=== PATIENT | male | born 1960 | race Caucasian/White ===

== ENCOUNTER 2023-10-29 15:00 | Inpatient (IN) | payer OTHER, SELFPAY ==
[2023-10-29] VITALS (8 sets, daily range): BP systolic 132–166; BP diastolic 64–85; BMI 30.8
--- NOTE | 2023-10-29 10:33 | ED.GENMED ---
History of Present Illness
<Kadi Colon PA-C - Last Filed: 10/29/23 14:43>
General
Chief Complaint: Post Operative Problem(s)
Source: patient
Exam Limitations: none
Time Seen by Provider: 10/29/23 10:31
Nursing documentation reviewed up to this point in time: agreed with
Travel History
Have you had any contact with someone who has COVID-19?: No
Do you have any symptoms of coronavirus? Fever > 100 degrees, chills, cough, shortness of breath, sore throat, loss of taste or smell, muscle aches, or headache?: No
History of Present Illness
History of Present Illness:
This is a 63-year-old male past medical history of insulin-dependent diabetes, hypertension, hyperlipidemia presenting to emergency department today with swelling, warmth, bleeding, general rate. Patient states that he was here at the hospital
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 He had to have a repeat surgery on August 07 and at that time drains were put in. He was released from the hospital August 3th and returned to work September
. Dr. Kaba and Dr. Linn performed his surgeries. He states that around a week ago, he started having swelling in the area. He states that the swelling increased over the past week and he called Dr. Linn who started him on levofloxacin.
He is on day 4 of levofloxacin. He denies fevers or chills. He states that today, he started to have warmth in the area which traveled down his leg, as well as bleeding. He states that he bled through his pants and underwear. He has no pain at
this time.
Past History
<Kadi Colon PA-C - Last Filed: 10/29/23 14:43>
Past History
ED Past Medical History: Other (Diabetes hypertension)
ED Past Surgical History: Other (Foreign gangrene)
Social History
Tobacco: Non-smoker
Alcohol: None
Drug: None
Personal:
Living: with family
Employment: Employed
Family History
Family History: Other (Noncontributory)
Review of Systems
<Kadi Colon PA-C - Last Filed: 10/29/23 14:43>
Review of Systems
All Other Systems: ROS reviewed and negative except as documented in HPI and ROS
Phy Exam
<Kadi Colon PA-C - Last Filed: 10/29/23 14:43>
Physical Exam
Physical Exam:
General: Patient is well-appearing in no acute distress
Cardiac: Regular rate and rhythm, no murmur
Pulm: Normal respiratory effort
Abodmen: Abdomen is nondistended, nonrigid, nontender to palpation
Genitourinary: See attending note
Course
<Kadi Colon PA-C - Last Filed: 10/29/23 14:43>
Orders/Labs/Results
Orders:
Orders
10/29/23 10:53
Complete Blood Count/With Diff Urgent
Comprehensive Metabolic Panel Urgent
10/29/23 11:31
CT Abd/pelvis W Iv Cont Urgent
Comment:
Reason For Exam: suprapubic fullness, drainage--h/o neli's
10/29/23 11:32
0.9% Sodium Chloride 1000 ml [Nss] 1,000 ml IV BOLUS
10/29/23 13:43
Piperacillin/Tazo 3.375 Gram [Zosyn] 3.375 gram in 50 ml IV NOW
10/29/23 13:45
INFECTIOUS DISEASE CONSULT Urgent
Consulting Provider: Javier Yeh
Was physician already notified: Yes
UROLOGY CONSULT Urgent
Consulting Provider: Kevon Yost
Was physician already notified: Yes
10/29/23 13:53
Lactate Level [Lactic Acid] Urgent
Blood Culture Q30M
NARCISO Source: Blood/Venous
Specimen Description:
10/29/23 13:54
Wound Culture [Wound/Abscess/Other Culture] Urgent
NARCISO Source: Groin
Specimen Description: Left
Date Specimen was Collected: 10/29/23
Time Specimen was Collected: 13:54
10/29/23 14:15
Blood Culture Q30M
NARCISO Source: Blood/Venous
Specimen Description:
Abnormal Lab Results
10/29/23
10:53
WBC 14.4 H 10^3/uL
(4.8-10.8)
RBC 3.53 L 10^6/uL
(4.70-6.10)
Hgb 10.8 L g/dL
(13.0-18.0)
Hct 31.6 L %
(39.0-52.0)
Abs Immat Gran (auto) 0.1 H 10^3/uL
(0-0.05)
Absolute Neuts (auto) 11.8 H 10^3/uL
(1.4-6.5)
Absolute Lymphs (auto) 1.1 L 10^3/uL
(1.2-3.4)
Absolute Monos (auto) 1.4 H 10^3/uL
(0.1-0.6)
Neutrophils % 81.8 H %
(42.2-75.2)
Lymphocytes % 7.7 L %
(20.5-51.1)
Monocytes % 9.4 H %
(1.7-9.3)
BUN 61 H mg/dl
(9-20)
Creatinine 2.2 H mg/dL
(0.7-1.3)
Glucose 121 H mg/dl
(70-99)
10/29/23 10:53
10/29/23 10:53
Vital Signs
Initial and Last Documented VS:
Initial Vital Signs
Temp Pulse Resp BP Pulse Ox
98.2 F 85 20 138/85 100
10/29/23 10:23 10/29/23 10:23 10/29/23 10:23 10/29/23 10:23 10/29/23 10:23
Last Documented Vital Signs
Temp Pulse Resp BP Pulse Ox
98.2 F 77 16 155/72 99
10/29/23 10:23 10/29/23 10:57 10/29/23 10:57 10/29/23 13:51 10/29/23 12:18
<James Richard MD - Last Filed: 10/29/23 13:59>
Orders/Labs/Results
Orders:
Orders
10/29/23 10:53
Complete Blood Count/With Diff Urgent
Comprehensive Metabolic Panel Urgent
10/29/23 11:31
CT Abd/pelvis W Iv Cont Urgent
Comment:
Reason For Exam: suprapubic fullness, drainage--h/o neli's
10/29/23 11:32
0.9% Sodium Chloride 1000 ml [Nss] 1,000 ml IV BOLUS
10/29/23 13:43
Piperacillin/Tazo 3.375 Gram [Zosyn] 3.375 gram in 50 ml IV NOW
10/29/23 13:45
INFECTIOUS DISEASE CONSULT Urgent
Consulting Provider: Javier Yeh
Was physician already notified: Yes
UROLOGY CONSULT Urgent
Consulting Provider: Kevon Yost
Was physician already notified: Yes
10/29/23 13:53
Lactate Level [Lactic Acid] Urgent
Blood Culture Q30M
NARCISO Source: Blood/Venous
Specimen Description:
01/22/24 13:54
Wound Culture [Wound/Abscess/Other Culture] Urgent
NARCISO Source: Groin
Specimen Description: Left
Date Specimen was Collected: 10/29/23
Time Specimen was Collected: 13:54
10/29/23 14:15
Blood Culture Q30M
NARCISO Source: Blood/Venous
Specimen Description:
Abnormal Lab Results
10/29/23
10:53
WBC 14.4 H 10^3/uL
(4.8-10.8)
RBC 3.53 L 10^6/uL
(4.70-6.10)
Hgb 10.8 L g/dL
(13.0-18.0)
Hct 31.6 L %
(39.0-52.0)
Abs Immat Gran (auto) 0.1 H 10^3/uL
(0-0.05)
Absolute Neuts (auto) 11.8 H 10^3/uL
(1.4-6.5)
Absolute Lymphs (auto) 1.1 L 10^3/uL
(1.2-3.4)
Absolute Monos (auto) 1.4 H 10^3/uL
(0.1-0.6)
Neutrophils % 81.8 H %
(42.2-75.2)
Lymphocytes % 7.7 L %
(20.5-51.1)
Monocytes % 9.4 H %
(1.7-9.3)
BUN 61 H mg/dl
(9-20)
Creatinine 2.2 H mg/dL
(0.7-1.3)
Glucose 121 H mg/dl
(70-99)
10/29/23 10:53
10/29/23 10:53
Vital Signs
Initial and Last Documented VS:
Initial Vital Signs
Temp Pulse Resp BP Pulse Ox
98.2 F 85 20 138/85 100
10/29/23 10:23 10/29/23 10:23 10/29/23 10:23 10/29/23 10:23 10/29/23 10:23
Last Documented Vital Signs
Temp Pulse Resp BP Pulse Ox
98.2 F 77 16 155/72 99
10/29/23 10:23 10/29/23 10:57 10/29/23 10:57 10/29/23 13:51 10/29/23 12:18
<Kadi Colon PA-C - Last Filed: 10/29/23 14:43>
MDM/Problems Addressed
Differential Diagnosis Includes:
Differentials include cellulitis, Neli's gangrene, suprapubic abscess, hematoma, acute renal colic,
MDM/Problems Addressed:
Surgical site swelling and bleeding
Chronic conditions affecting care: DM, HTN and Other (hyperlipidemia)
<Kadi Colon PA-C - Last Filed: 10/29/23 14:43>
*Pulse Oximetry
Patient hypoxic: no
*Critical Care Note
Total Time (30-74mins, 75-104mins- exclusive of procedures): Not Applicable
Data Reviewed
Review of Other/Old Records Reveals: Records (Reviewed previous records from recent hospital visit.), Operative Reports (Reviewed most recent operative report, patient had debridement of all necrotic tissue as well as drainage of suprapubic abscess)
and Discharge Summary (Reviewed discharge summary from August 10, patient need to have 2 separate washouts by urology, was treated with meropenem and recommended to have endocrinology follow up )
Prescriptions/Medications Considered But Not Given:
n/a
Further Testing Considered But Not Given:
n/a
<Kadi Colon PA-C - Last Filed: 10/29/23 14:43>
Patient Management
Escalation/DeEscalation of care consider admission/obs:
This is a 63-year-old male with a past medical history of insulin dependent diabetes, hypertension, Neli's gangrene, who presented to emergency department today with increasing swelling, warmth, and bleeding from the genital region. On exam, is
some suprapubic swelling and there is a small pinhole area that is not actively bleeding. CMP demonstrates an acute kidney injury, and his CBC shows a leukocytosis of 14.4. We started him on IV fluids. His CT exam revealed left perineum abscess, we
will plan to admit with ID and urology consult, will start on Zosyn.
ED Attending Note
<Kadi Colon PA-C - Last Filed: 10/29/23 14:43>
-
Portions of this chart may have been created with voice recognition software.� Occasional wrong word or��sound alike� substitutions may have occurred due to the inherent limitations of voice recognition software.
<James Richard MD - Last Filed: 10/29/23 13:59>
ED Attending Note
Patient seen and examined by attending physician: Yes
I performed the substantive portion of visit, reviewed & personally made and approve the management plan that is documented in note by myself or SREEDHAR.: Yes
ED Attending Note:
HPI: 63-year-old male with a past medical history of hypertension, hyperlipidemia, insulin-dependent diabetes who presents to the emergency room accompanied by his for evaluation of swelling and drainage at the base of his penis. Patient was
notably admitted in August with Neli's gangrene requiring debridement with Dr. Kaba/Temitope. He was discharged with PICC line and finished his antibiotics and had been doing generally well. He says over the past few days he started to
notice some swelling at the base of his penis. He says that he called his urologist who prescribed him Levaquin which he has been taking over the past 48 hours. Nevertheless over the past 24 hours he noticed that he was having reddish-yellow
drainage�he says he was having a copious amount of drainage to the point that he was soaking through his pants. Came to the emergency room for assessment. He has not noted any fevers or chills. He says his blood sugars have been running
relatively high.
ROS: Positive for swelling and drainage from the base of his penis; negative for fever, chills, abdominal pain, nausea, vomiting, dysuria, hematuria, change in frequency
Physical exam:
General: Awake, alert, oriented x3; no acute distress
Head: Normocephalic, atraumatic
Eyes: Conjunctiva normal
Throat: Airway intact, handling secretions
Neck: Trachea midline, supple without meningismus
Lungs: Clear to auscultation bilaterally, no wheezing, rales, rhonchi
Heart: Regular rate and rhythm, no murmurs, gallops, or rubs
Abd: Soft, non distended, nontender
: Patient has some swelling and fullness of the pubic mound and the base of the penis; he has a pinhole opening just to the left of the base of his penis with steady drainage of serosanguineous discharge�on palpation of the pubic mound able to
express pus from this pinhole; penis appears normal, circumcised, no edema or erythema and no scrotal swelling or edema
Neuro: Cranial nerves grossly intact, speech fluid
Skin: no rash
Extremities: Warm well-perfused
Differential diagnosis: Abscess, hematoma, Neli's gangrene
Medical decision makin-year-old male with history as above presents for swelling and drainage from an area at the base of his penis. He was started on Levaquin as an outpatient but swelling and drainage worsening. Vital signs here within
normal limits. Exam as above. Concern for abscess based on exam. Will plan to place an IV check labs including CBC and CMP, blood cultures. Will check CT of the abdomen pelvis. Monitor closely reassess after the above.
Chronic conditions affecting care: Insulin-dependent diabetes�higher risk for infection
Acute exacerbation or progression of chronic illness: Acutely hypertensive�no signs or symptoms of hypertensive emergency no indication for emergent antihypertensive treatment at present
History source: Patient, spouse
Data reviewed: Prior records, labs, operative reports, discharge summary
Medications/testing considered: N/A
Social determinants of health: N/A
Discussion with other providers: Discussed with urology, discussed with infectious disease, discussed with hospitalist
Disposition: Admission indicated
UPDATE: Labs show leukocytosis to 14.4. CMP shows creatinine of 2.[address] of the abdomen pelvis shows abscess in the perineal region at the base of the penis. Case discussed with urology who recommended n.p.o., antibiotics they
will evaluate at bedside. Discussed with infectious disease who agrees with blood cultures, recommended wound culture as well agrees with Zosyn for now they will consult patient. Discussed case with hospitalist for admission.
Discharge Plan
Departure
Patient Disposition: Admit
Date of Disposition: 10/29/23
Time of Disposition: 13:52
Admit to doctor: Kortney
Presentation/result/management discussed w/ accepting MD/DO: Hospitalist
Discharge Problem:
Abscess of perineum
Prescriptions:
No Action
cyclobenzaprine 10 mg Tablet
10 mg PO TIDPRN PRN (Reason: muscle pain)
carvedilol 6.25 mg Tablet
6.25 mg PO DAILY
simvastatin 40 mg Tablet
40 mg PO HS
omeprazole 20 mg Capsule,Delayed Release(Dr/Ec)
20 mg PO DAILY
diclofenac sodium 75 mg Tablet,Delayed Release (Dr/Ec)
75 mg PO BID
acetaminophen [Tylenol] 325 mg Tablet
325 mg PO DAILYPRN PRN (Reason: mild pain)
therapeutic multivitamin Tablet
1 tab PO DAILY
aspirin 81 mg Tablet,Delayed Release (Dr/Ec)
81 mg PO DAILY
apple cider vinegar 500 mg Tablet
500 mg PO DAILY
Visbiome 112.5 billion cell Capsule
1 cap PO DAILY
cholecalciferol (vitamin D3) [Vitamin D3] 50 mcg (2,000 unit) Tablet
50 mcg PO DAILY
turmeric 400 mg Capsule
400 mg PO DAILY
ferrous sulfate 325 mg (65 mg iron) tablet
325 mg PO DAILY Qty: 30 0RF
docusate sodium 100 mg Capsule
100 mg PO BID Qty: 20 0RF
Dakin's Solution 0.125 % Solution
1 applic topical BID Qty: 473 0RF
polyethylene glycol 3350 [HealthyLax] 17 gram Powder In Packet
17 g PO DAILY Qty: 20 0RF
amlodipine 5 mg Tablet
5 mg PO DAILY Qty: 30 0RF
lisinopril 10 mg Tablet
10 mg PO DAILY Qty: 30 0RF
meropenem 1 gram Recon Soln
1,000 mg IV Q8H Qty: 10 0RF
oxycodone 5 mg Tablet
5 mg PO Q4HPRN PRN (Reason: moderate pain) Qty: 15 0RF
insulin aspart U-100 [Novolog FlexPen U-100 Insulin] 100 unit/mL (3 mL) Insulin Pen
24 unit SC AC Qty: 30 0RF
insulin glargine [Lantus U-100 Insulin] 100 unit/mL solution
39 unit SC QPM Qty: 10 0RF
(DME) insulin syringe-needle U-100 [Insulin Syringe Ultrafine] 0.5 mL 29 gauge x 1/2' Syringe
MISCELLANEOUS
Rx Instructions:
please dispense insulin syringe for 39 units of lantus
(DME) pen needle, diabetic 31 gauge x 5/16' Needle
MISCELLANEOUS
Referrals:
Blayne Herrera PA-C [Family Provider] -
Interventions
Interventions:
*Risk Screen - Suicide Last Done: 10/29/23 10:27
*General Assessment Last Done: 10/29/23 10:27
*Neglect/Abuse Screening Last Done: 10/29/23 10:27
*ED COVID-19 Vaccine History Last Done: 10/29/23 10:57
ED-Skin Assessment Last Done: 10/29/23 11:11
[2023-10-29 11:07] LABS: % Basophils 0.3 % (0-2); % Eosinophils 0.5 % (0-6); % Immature Granulocytes 0.3 % (0-0.5); % Lymphocytes 7.7 % (20.5-51.1); % Monocytes 9.4 % (1.7-9.3); % Neutrophils 81.8 % (42.2-75.2); Absolute Basophils 0.1 10^3/uL (0-0.2); Absolute Eosinophils 0.1 10^3/uL (0-0.7); Absolute Immature Granulocytes 0.1 10^3/uL (0-0.05); Absolute Lymphocytes 1.1 10^3/uL (1.2-3.4); Absolute Monocytes 1.4 10^3/uL (0.1-0.6); Absolute Neutrophils 11.8 10^3/uL (1.4-6.5); Hematocrit 31.6 % (39.0-52.0); Hemoglobin 10.8 g/dL (13.0-18.0); Mean Corp Hgb Conc. 34.2 g/dL (33.0-37.0); Mean Corpuscular Hgb 30.6 pg (27.0-31.0); Mean Corpuscular Volume 89.5 fL (80.0-94.0); Nucleated Red Blood Cells % 0 % (-); Platelet Count 363 10^3/uL (130-400); Red Blood Cell Count 3.53 10^6/uL (4.70-6.10); Red Cell Dist. Width 12.5 % (11.5-14.5); White Blood Cell Count 14.4 10^3/uL (4.8-10.8)
--- NOTE | 2023-10-29 11:13 | EDRN ---
Well-appearing 63yo male, s/p surgery for gangrene in his groin in July. Pt states he developed swelling to groin/lower abd area, was prescribed antibiotics, today started bleeding from the incision site. Pt awake and alert, ambulatory, denies
pain, denies fevers. Healed incision noted across lower abd/groin area, pinpoint area of dehiscence noted with sanguinous drainage. Awaiting MD hannon.
[2023-10-29 11:19] LABS: ALT (SGPT) 25 U/L (0-50); AST (SGOT) 24 U/L (17-59); Albumin 3.8 g/dl (3.5-5.0); Alkaline Phosphatase 96 U/L (38-126); Blood Urea Nitrogen 61 mg/dl (9-20); Calcium 9.2 mg/dl (8.4-10.2); Carbon Dioxide 25 mmol/L (22-30); Chloride 102 mmol/L (98-107); Estimated Creatinine Clearance 43 ml/min; Glucose 121 mg/dl (70-99); Sodium 135 mmol/L (135-145); Total Bilirubin 0.6 mg/dl (0.2-1.3); Total Protein 7.1 g/dl (6.3-8.2); eGFR 32.83
[2023-10-29] MEDS: NSS 1000 IV ×2 (11:40→16:35)
[2023-10-29] MEDS: ZOSYN 50 IV (14:11)
--- NOTE | 2023-10-29 14:17 | HPS.HSE ---
Addendum entered and electronically signed by Arpit Welch MD 10/29/23 15:30:
I saw and examined the patient.
The ACQUISITION PROFESSIONAL or PA's note was reviewed and I agree with the note.
Comment: 63-year-old male who presents with a chief complaint of suprapubic wound.
166/75, 77, 16, 98.2 �F, 98% RA
NAD, awake and alert, NCAT
RRR, normal S1/S2
CTAB
+BS/soft/NT/ND
There is an ulcer with purulent discharge approximately 2 cm in diameter over the pubic symphysis. There is surrounding soft tissue edema, mild erythema, and induration.
WBC 14.4, Hb 10.8, plt 363
BUN 61, Cr 2.2
CT A/P: Findings concerning for abscess in the left perineum as described above. Associated surrounding inflammatory change. Mild fecal material throughout the colon. Mild bladder wall thickening probably is partially due to limited distention.
Cystitis and bladder outlet obstruction not excluded.
Suprapubic fullness, perineal abscess:
-NPO/IVFs
-based on prior culture data cont with Meropenem until seen by ID
-c/s urology for possible surgical intervention
VICK:
-Likely due to prerenal azotemia
-IVFs, trend Cr
Original Note:
Family Physician
-
Family Physician: Blayne Herrera
Chief Complaint
-
suprapubic wound
History of Present Illness
63-year-old male past medical history of insulin-dependent diabetes, hypertension, hyperlipidemia, Neli gangrene presenting to emergency department today with swelling, warmth, bleeding, genital area for one week. he was prescribed Levaquin on
Sunday. noticed bleeding today which prompted him to come to ER. denied fever, chills, chest pain, sob. denied STAFFORD, dizzy or syncopal episode. denied abdominal pain, n,v,d. denied dysuria or hematuria.
Patient states that he was here at the hospital July 30 to have debridement of Neli's gangrene and was subsequently discharged.� He had to have a repeat surgery on August 07 and at that time drains were put in.� He was released from the
hospital August 3th and returned to work September 11. Dr. Kaba and Dr. Linn performed his surgeries.
patient received a dose of Zosyn. admitting for further management.
Medical History
Past Medical History
Past Medical History: Reports Other
Additional Past Medical History:
Type 2 diabetes
Hypertension
Hyperlipidemia
Skin cancer
Fornier gangrene
Past Surgical History: Reports Other
Additional Past Surgical History:
Surgery for skin cancer
neli gangrene surgery
Social History
Tobacco: Former Smoker
Alcohol: None
Personal:
Living: With Family
Employment: Employed
Family History
Family History: Not pertinent
Allergies / Home Medications
Allergies reflects when Allergies were last updated in [employer].
Home Medications with original date entered in [employer]
Allergy/Medication List:
Allergies
Allergy/AdvReac Type Severity Reaction Status Date / Time
empagliflozin Allergy Neli's Verified 08/17/23 14:22
gangrene
Home Medications
Lactobac no.2-Bifidobac no.1-S. thermo 112.5 billion cell capsule (Visbiome) 1 cap PO DAILY probiotic 07/30/23
acetaminophen 325 mg tablet (Tylenol) 325 mg PO DAILYPRN PRN mild pain 07/30/23
apple cider vinegar 500 mg tablet 500 mg PO DAILY Supplement 07/30/23
aspirin 81 mg tablet,delayed release 81 mg PO DAILY Blood Clot Prevention/Tx 07/30/23
carvedilol 6.25 mg tablet 6.25 mg PO DAILY Blood Pressure 07/30/23
cholecalciferol (vitamin D3) 50 mcg (2,000 unit) tablet (Vitamin D3) 50 mcg PO DAILY Supplement 07/30/23
cyclobenzaprine 10 mg tablet 10 mg PO TIDPRN PRN muscle pain 07/30/23
diclofenac sodium 75 mg tablet,delayed release 75 mg PO BID Pain 07/30/23
omeprazole 20 mg capsule,delayed release 20 mg PO DAILY Gastrointestinal Issue 07/30/23
simvastatin 40 mg tablet 40 mg PO HS High Cholesterol 07/30/23
therapeutic multivitamin 1 tab PO DAILY Supplement 07/30/23
turmeric 400 mg capsule 400 mg PO DAILY Supplement 07/30/23
ferrous sulfate 325 mg (65 mg iron) tablet 325 mg PO DAILY Supplement #30 tabs 08/05/23
amlodipine 5 mg tablet 5 mg PO DAILY Blood pressure #30 tabs 08/10/23
docusate sodium 100 mg capsule 100 mg PO BID Gastrointestinal issue #20 caps 08/10/23
insulin aspart U-100 100 unit/mL (3 mL) subcutaneous pen (Novolog FlexPen U-100 Insulin aspart) 24 unit (0.24 mL) SC AC Diabetes #30 mL 08/10/23
insulin glargine 100 unit/mL subcutaneous solution (Lantus U-100 Insulin) 39 unit (0.39 mL) SC QPM #10 mL 08/10/23
insulin syringe-needle U-100 0.5 mL 29 gauge x 1/2' 08/10/23
lisinopril 10 mg tablet 10 mg PO DAILY Blood pressure #30 tabs 08/10/23
meropenem 1 gram intravenous solution 1,000 mg IV Q8H Infection #10 ea 08/10/23
oxycodone 5 mg tablet 5 mg PO Q4HPRN PRN moderate pain #15 tabs 08/10/23
pen needle, diabetic 31 gauge x /16' 08/10/23
polyethylene glycol 3350 17 gram oral powder packet (HealthyLax) 17 g PO DAILY Gastrointestinal issue #20 ea 08/10/23
sodium hypochlorite 0.125 % solution (Dakin's Solution) 1 applic topical BID Supplement #473 mL 08/10/23
Review of Systems
-
Constitutional: Reports No Symptoms
EENT: Reports No Symptoms
Respiratory: Reports No Symptoms
Cardiac: Reports No Symptoms
Abdomen/GI: Reports No Symptoms
: Reports No Symptoms
Musculoskeletal: Reports No Symptoms
Skin: Reports Other (bleeding genital area)
Neurological: Reports No Symptoms
Endocrine: Reports No Symptoms
Hematologic/Lymphatic: Reports No Symptoms
Psych: Reports No Symptoms
Physical Exam
Vital Signs
Vital Signs
Temp Pulse Resp BP Pulse Ox
98.2 F 77 16 155/72 99
10/29/23 10:23 10/29/23 10:57 10/29/23 10:57 10/29/23 13:51 10/29/23 12:18
Physical Exam
General: Well Developed, Well Nourished and No Apparent Distress
HEENT: NormoCephalic, Moist mucous membranes and Atraumatic
Respiratory: Clear
Cardiac: S1/S2 and Regular Rhythm; No Murmur or Rub
GI: Soft, Non Tender, Non Distended and Normal Bowel Sounds; No Organomegaly
Rectal: Deferred by Provider
Musculoskeletal: No Clubbing, No Cyanosis and No Edema
Skin: Rash and Other (redness, swelling, bleeding at genital area)
Neuro: AO x 3 and Nonfocal/grossly intact
Psych: Calm
Laboratory Results
-
10/29/23 10:53
10/29/23 10:53
Laboratory Results
Total Bilirubin 0.6 mg/dl (0.2-1.3) 10/29/23 10:53
AST 24 U/L (17-59) 10/29/23 10:53
ALT 25 U/L (0-50) 10/29/23 10:53
Alkaline Phosphatase 96 U/L (38-126) 10/29/23 10:53
Data Reviewed
-
CT Scan: Report Reviewed by me
Lab Data: Labs Reviewed by me
Impression/Plan
-
#suprapubic swelling and drainage likely from perineal abscess possible Neli gangrene
-CT with Findings concerning for abscess in the left perineum as described above. Associated surrounding inflammatory change Mild fecal material throughout the colon.Mild bladder wall thickening probably is partially due to limited
distention.Cystitis and bladder outlet obstruction not excluded.
-wbc 14.4
-maintain NPO for possible surgical intervention
-iv meropenem
-Tylenol prn for fever and pain
-wound and blood culture sent from ER
-urology and ID consulted
-wound care consulted
-hxt of Citrobacter in blood and wound
# History of iron deficiency anemia
-hgb 10.8
-no active bleeding
-ctm
#VICK on CKD 3b likely dehydration
-cr 2.2
-continue to trend
-normal saline continued
# Type 2 diabetes
-Sliding scale
-Blood sugar check every 6 hours
-hold novolog as patient is NPO
-Lantus 15uat hs
#Hypertension
-continue carvedilol
-hold hctz,lisinopril due to VICK
#Hyperlipidemia-continue statin
#BPH
-tadalafil continued
#Constipation
-Colace continued
-senna added
#GERD-continue PPI
#DVT prophylaxis
-scd
#Full code
[2023-10-29 14:20] LABS: Lactic Acid 0.7 mmol/L (0.7-2.0)
[2023-10-29 16:52] LABS: Glucose - Point of Care 105 mg/dl (70-99)
[2023-10-29] MEDS: NOVOLOG FLEXPEN-HIGH RESISTANCE SC (16:54)
--- NOTE | 2023-10-29 16:58 | CON.ID ---
Consultation
-
Date/Time Consultation Requested: 10/29/2023 1325
Date/Time Consultation Performed: 10/29/2023 1630
Requesting Provider: Dr. Richard
Performing Provider: Dr. Yeh
Reason for Consultation: Suprapubic abscess
Chief Complaint / Past History
History of Present Illness
Levy Horan is a 63-year-old man being evaluated at the request of Dr. Richard regarding suprapubic drainage. Hx is obtained from the patient and who is at the bedside. Additional hx obtained from review of old records contained in the
hospital EMR system.
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 At that time cultures revealed growth of Citrobacter [employer] and Staphylococcus lugdunensis. The patient
ultimately was discharged on a course of meropenem through mid August. Following completion of his course of antibiotics he did well, but over the last week and a half has developed increasing swelling in the suprapubic region and the base of the
penis. He reached out to Urology and on Sunday was placed on Levaquin. Today he went to work and there was spontaneous drainage of bloody purulent fluid onto his undergarments. At this point in time he came to the emergency room for further care
and evaluation. During this timeframe he denies any fevers or chills. He reports some discomfort, noting it to be 4/10. He denies any dysuria. He denies any change in bowel or bladder habits.
Past History
Additional Past Medical History:
DM type II
HTN
Additional Past Surgical History:
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
Allergy History:
empagliflozin Allergy (Verified 08/17/23 14:22)
Rufino's gangrene
Medications Reviewed: Yes
Current Antibiotics:
Meropenem 500 mg IV every 8 hours
Social History
Tobacco: Non-Smoker
Alcohol: None
Drug: None
Personal:
Living: With Family
Employment: Employed
Family History
Family History: Not Pertinent
Review of Systems
Vital Signs
Temp Pulse Resp BP Pulse Ox
98.5 F 81 18 132/75 100
10/29/23 15:00 10/29/23 15:00 10/29/23 15:00 10/29/23 15:00 10/29/23 15:00
Physical Exam
Physical Exam
Constitutional: No Acute Distress, Well Developed, Comfortable and Non-toxic
Head: Normocephalic
Eyes: Pupils Equal, Pupils Round, No Conjunctival Hemorrhage and Sclera Anicteric
Oral: No Thrush and No Ulcers
Cardiovascular: S1/S2; Negative S3/S4 or Murmur
Pulmonary: Clear and Non Labored
Gastrointestinal: Soft, Non Tender and Non Distended
Genito-Urinary: Suprapubic Tenderness (And swelling. Purulent drainage from a punctate area in the superior base of the penis.)
Extremities: Negative Edema, Cyanosis or Erythema
Neurological: Awake and Alert
Psychological: Calm
Lab / Diagnostic Study Results
10/29/23 10:53
10/29/23 10:53
Abs Immat Gran (auto) 0.1 10^3/uL (0-0.05) H 10/29/23 10:53
Absolute Neuts (auto) 11.8 10^3/uL (1.4-6.5) H 10/29/23 10:53
Absolute Lymphs (auto) 1.1 10^3/uL (1.2-3.4) L 10/29/23 10:53
Absolute Monos (auto) 1.4 10^3/uL (0.1-0.6) H 10/29/23 10:53
Absolute Basos (auto) 0.1 10^3/uL (0-0.2) 10/29/23 10:53
Immature Gran % 0.3 % (0-0.5) 10/29/23 10:53
Neutrophils % 81.8 % (42.2-75.2) H 10/29/23 10:53
Lymphocytes % 7.7 % (20.5-51.1) L 10/29/23 10:53
Monocytes % 9.4 % (1.7-9.3) H 10/29/23 10:53
Eosinophils % 0.5 % (0-6) 10/29/23 10:53
Basophils % 0.3 % (0-2) 10/29/23 10:53
Lactic Acid 0.7 mmol/L (0.7-2.0) 10/29/23 13:53
Microbiology Results
Micro:
10/29/23 13:54 Wound Culture - Pending
Groin - Left Gram Stain - Preliminary
10/29/23 14:15 Blood Culture - Pending
Blood/Venous
10/29/23 13:53 Blood Culture - Pending
Blood/Venous
Imaging:
10/29/2023 CT abdomen/pelvis with contrast: Findings are concerning for an abscess in the left perineum and anterior inferior pelvic wall. Fluid collection with several tiny pockets of air and mild rim enhancement. Measurements are 3 x 2 x 6 cm.
Please see full dictation for additional detail.
Assessment / Plan
Suprapubic abscess
Leukocytosis
Renal insufficiency
Hx HTN
DM type II
Recommendations:
Prior cultures were reviewed and revealed growth of staph lugdunensis and Citrobacter.
Continue with empiric meropenem for the present.
Will add vancomycin.
Await further culture data to guide antimicrobial therapy.
Care Review
Plan reviewed with: Physician (ER)
--- NOTE | 2023-10-29 17:41 | PHA.VAN.IN ---
Assessment
- Assessment
Renal Function: Appears elevated from baseline (08/08/23 BASELINE SCR: 1.2)
Concomitant Antimicrobials: MEROPENEM
- Previous Dosing Experience
Previous Regimen: DOSING BY RANDOM LEVELS
Date of Regimen: 07/31/23
Provided Trough of: UNKNOWN
Provided AUC of: UNKNOWN
Patient's SCR is: Elevated compared to previous dosing experience (07/31/23 SCR: 1.5)
Patient's weight is: Decreased compared to previous dosing experience (07/31/23 WT = 112.5KG)
Plan
- Plan
Initial / Loading Dose: 2GM
Maintenance Regimen: DOSING BY RANDOM LEVEL
Monitoring: RANDOM VANCOMYCIN LEVEL 10/30/23 AM
Pharmacokinetics Vancomycin I
- -
Patient Age: 63
Patient Sex: Male
Vancomycin Day #: 1
Indication: Skin And Soft Tissue (SUPRA-PUBIC ABSCESS)
Requesting Provider: MATTY
Height / Weight:
Height 6 ft
Actual Weight 103 kg
Pertinent Past Medical History: PRIOR TX FOR FORIER'S GANGRENE 08/30
- Vital Signs / Lab Results
Temp Pulse Resp BP Pulse Ox
98.5 F 81 18 132/75 100
10/29/23 15:00 10/29/23 15:00 10/29/23 15:00 10/29/23 15:00 10/29/23 15:00
Lab Results - Hematology
10/29/23
10:53
WBC 14.4 H
Lab Results - Chemistry
10/29/23
10:53
BUN 61 H
Creatinine 2.2 H
Estimated Creat Clear 43
Albumin 3.8
10/29/23
13:53
Lactic Acid 0.7
Microbiology Results
10/29/23 13:54 Gram Stain - Preliminary
Groin - Left
--- NOTE | 2023-10-29 20:25 | CONS.URO ---
Consultation
-
Performing Provider: Govindfer
Reason for Consultation: Pubic abscess
Medical History
History of Present Illness
63M hx of IDDM, hypertension, hyperlipidemia, Rufino's gangrene
Treated here 07/2023, 08/2023 for Rufino's gangrene around corporal bodies and surrounding the pubic symphysis
After discharge had some drains placed which were sequentially removed over the course of a month with resolving drainage
Over the past 6 weeks he has done well until 1 week ago he developed some swelling and pressure superior to the base of his penis. he was prescribed Levaquin on Sunday by Dr Linn
Today he noticed a large amount of drainage/bleeding from the area which prompted him to come to ER. denied fever, chills, chest pain, sob. denied STAFFORD or syncopal episode. denied abdominal pain, n,v,d. denied dysuria or hematuria. Voiding without
difficulty
CT scan showed a collection with some gas concerning for abscess tracking along anterior aspect of corporal bodies
Patient was admitted on broad spectrum abx, no clinical signs of sepsis or systemic infection other than mild leukocytosis
Wound cultures were sent from ER
Past Medical History
Past Medical History: Other (As above)
Social History
Tobacco: Former Smoker
Alcohol: None
Drug: None
Personal:
Living: With Family
Family History
Family History: Reviewed & Not Pertinent
Allergies/Home Medications
Allergies
Allergy/AdvReac Type Severity Reaction Status Date / Time
empagliflozin Allergy Rufino's Verified 08/17/23 14:22
gangrene
Home Medications
Medication Instructions Recorded Confirmed Type
Lactobac no.2-Bifidobac no.1-S. 1 cap PO DAILY probiotic 07/30/23 10/29/23 History
thermo 112.5 billion cell capsule
(Visbiome)
aspirin 81 mg tablet,delayed 81 mg PO DAILY Blood Clot 07/30/23 10/29/23 History
release Prevention/Tx
carvedilol 6.25 mg tablet 6.25 mg PO DAILY Blood Pressure 07/30/23 10/29/23 History
omeprazole 20 mg capsule,delayed 20 mg PO DAILY Gastrointestinal 07/30/23 10/29/23 History
release Issue
simvastatin 40 mg tablet 40 mg PO HS High Cholesterol 07/30/23 10/29/23 History
lisinopril 10 mg tablet 10 mg PO DAILY Blood pressure #30 08/10/23 10/29/23 Rx
tabs
acetaminophen 500 mg tablet 1,000 mg PO DAILYPRN PRN mild pain 10/29/23 10/29/23 History
(Tylenol Extra Strength)
docusate sodium 100 mg capsule 100 mg PO DAILY Gastrointestinal 10/29/23 10/29/23 History
issue
hydrochlorothiazide 25 mg tablet 25 mg PO DAILY 10/29/23 10/29/23 History
insulin aspart U-100 100 unit/mL 0 sliding scale dose SC DIRECTED 10/29/23 10/29/23 History
(3 mL) subcutaneous pen (Novolog
FlexPen U-100 Insulin aspart)
insulin aspart U-100 100 unit/mL 22 unit SC AC Diabetes 10/29/23 10/29/23 History
(3 mL) subcutaneous pen (Novolog
FlexPen U-100 Insulin aspart)
insulin glargine 100 unit/mL 37 unit SC HS 10/29/23 10/29/23 History
subcutaneous solution (Lantus
U-100 Insulin)
levofloxacin 750 mg tablet 750 mg PO DAILY 10/29/23 10/29/23 History
oxycodone 5 mg tablet 5 mg PO HS 10/29/23 10/29/23 History
tadalafil 5 mg tablet 5 mg PO HS 10/29/23 10/29/23 History
Physical Exam
Vital Signs
Vital Signs
Temp Pulse Resp BP Pulse Ox
98.5 F 81 18 132/75 100
10/29/23 15:00 10/29/23 15:00 10/29/23 15:00 10/29/23 15:00 10/29/23 15:00
Lab / Testing Results
Laboratory Results
10/29/23 10:53
10/29/23 10:53
Physical Exam
General: Well Developed, Well Nourished and No Apparent Distress
Respiratory: Clear and Non Labored Respirations
GI: Soft, Non Tender and Non Distended
Genito-urinary: Other (2mm opening at base of penis with purulent drainage and surrounding/underlying induration)
Neuro: AO x 3
Psych: Calm and Intact Judgement
Assessment / Plan
-
63M s/p debridement and washout of Rufino's gangrene 07/2023 admitted with recurrent abscess anterior to corporal bodies which has spontaneously started drainage at home
- Draining sinus opened at bedside to approx 1cm and explored, revealing approx 8cm deep pocket in region of prior drain placement. Some remaining purulent fluid expressed.
- Wound packed with iodine gauze
- Continue local wound care at this time - don't suspect that more formal debridement under anesthesia will be necessary
- Continue antibiotic pending wound culture, F/U ID recs
Data Reviewed
-
CT Scan: Image personally visualized and interpreted
[2023-10-29] MEDS: MERREM 500 MG IV (20:26)
[2023-10-29] MEDS: STERILE WATER FOR INJECTION 10 ML IV (20:26)
[2023-10-29 21:15] LABS: Glucose - Point of Care 103 mg/dl (70-99)
[2023-10-29] MEDS: ROXICODONE 5 MG PO (22:14)
[2023-10-29] MEDS: LIPITOR 20 MG PO (22:15)
[2023-10-29] MEDS: SENOKOT 17.1999999999999993 MG PO (22:16)
[2023-10-29] MEDS: LANTUS 0.369999999999999996 UNITS SC (22:19)
[2023-10-30] MEDS: VANCOCIN 300 MG IV ×2 (00:33→12:52)
[2023-10-30] MEDS: VANCOCIN 300 ML IV ×2 (00:33→12:52)
[2023-10-30] MEDS: MERREM 500 MG IV ×3 (04:15→20:05)
[2023-10-30] MEDS: STERILE WATER FOR INJECTION 10 ML IV ×3 (04:15→20:05)
[2023-10-30] MEDS: NSS 1000 IV ×2 (06:25→20:28)
[2023-10-30 07:17] LABS: Hematocrit 30.5 % (39.0-52.0); Hemoglobin 10.3 g/dL (13.0-18.0); Mean Corp Hgb Conc. 33.8 g/dL (33.0-37.0); Mean Corpuscular Hgb 31.2 pg (27.0-31.0); Mean Corpuscular Volume 92.4 fL (80.0-94.0); Mean Platelet Volume 9.1 fL (7.4-10.4); Platelet Count 315 10^3/uL (130-400); Red Cell Dist. Width 12.7 % (11.5-14.5); White Blood Cell Count 10.7 10^3/uL (4.8-10.8)
[2023-10-30 07:34] LABS: Vancomycin Random 14.5 ug/ml
[2023-10-30 07:38] VITALS: BP 150/69
[2023-10-30 07:45] LABS: Blood Urea Nitrogen 45 mg/dl (9-20); Calcium 8.8 mg/dl (8.4-10.2); Carbon Dioxide 25 mmol/L (22-30); Chloride 104 mmol/L (98-107); Estimated Creatinine Clearance 49 ml/min; Glucose 170 mg/dl (70-99); Potassium 4.4 mmol/L (3.5-5.1); Sodium 137 mmol/L (135-145); eGFR 39.15
[2023-10-30 08:06] LABS: Glucose - Point of Care 192 mg/dl (70-99)
[2023-10-30] MEDS: PROTONIX 40 MG PO (08:07)
[2023-10-30] MEDS: COLACE 100 MG PO (08:07)
[2023-10-30] MEDS: COREG 6.25 MG PO (08:07)
[2023-10-30] MEDS: ASPIR LOW (ENTERIC COATED) 81 MG PO (08:07)
--- NOTE | 2023-10-30 08:24 | PHA.VAN.FU ---
Vancomycin Assessment / Plan
- Assessment
Renal Function: SCR Decreasing
WBC's are: Trending Down
In the past 24 hrs, patient has been: Afebrile
Concomitant Antimicrobials: meropenem
- Assessment - Therapeutic Drug Monitoring
Random Level: 14.5 - drawn ~6.5H after 1500mg initial dose
- Dosing Plan
Dosing by Level: Re-dose today (Vanc 1500mg)
- Monitoring Plan
Random Level: 10/31 0600
- Follow Up
Pharmacy will continue to follow.
Vancomycin Follow UP
- -
Patient Age: 63
Patient Sex: Male
Vancomycin Day #: 2
Indication: Skin And Soft Tissue
Requesting Provider: Dr. Yeh
Pertinent Antimicrobial Allergies:
no pertinent antibiotic allergies
Height / Weight:
Height 6 ft
Actual Weight 103 kg
Pertinent Past Medical History: DM, Rufino's gangrene
- Vital Signs / Lab Results
Temp Pulse Resp BP Pulse Ox
97.9 F 76 16 150/69 99
10/30/23 07:38 10/30/23 07:38 10/30/23 07:38 10/30/23 07:38 10/30/23 07:38
Lab Results - Hematology
10/29/23 10/30/23
10:53 07:03
WBC 14.4 H 10.7
Lab Results - Chemistry
10/29/23 10/30/23
10:53 07:03
BUN 61 H 45 H
Creatinine 2.2 H 1.9 H
Estimated Creat Clear 43 49
Albumin 3.8
10/29/23
13:53
Lactic Acid 0.7
Microbiology Results
10/29/23 13:54 Gram Stain - Preliminary
Groin - Left
Therapeutic Drug Monitoring
Random Vancomycin 14.5 ug/ml 10/30/23 07:03
[2023-10-30 08:35] LABS: Hepatitis C Antibody Negative (Negative)
--- NOTE | 2023-10-30 09:01 | W.PN.HOSP.TC ---
Today's Communication/Plan
-
see bold
Assessment / Plan
Assessment / Plan
Gen: NAD, AAOx3.
Eyes: EOMI, PERRLA, no scleral icterus.
Neck: supple.
CV: RRR, +S1/S2, no m/r/g.
Resp: CTAB, no rales, wheezes, or rhonchi.
Abd: +BS, soft, NT, ND
Skin: No rashes. note, deferred.
Neuro: CN 2-12 intact, non-focal.
Psych: Normal mood and affect.
10/29/23 13:54 Groin - Left Wound Culture - Preliminary
No growth
10/29/23 13:54 Groin - Left Gram Stain - Preliminary
CT A/P: Findings concerning for abscess in the left perineum as described above. Associated surrounding inflammatory change. Mild fecal material throughout the colon. Mild bladder wall thickening probably is partially due to limited distention.
Cystitis and bladder outlet obstruction not excluded.
Suprapubic fullness, perineal abscess:
-quoted from Dr. Yost's note 10/29/23, 'Draining sinus opened at bedside to approx 1cm and explored, revealing approx 8cm deep pocket in region of prior drain placement. Some remaining purulent fluid expressed. Wound packed with iodine gauze.'
-As per urology, further surgical debridement under anesthesia is unlikely
-cont Meropenem/Vanco
-ID/Uro following
-follow BCxs/WCx
VICK:
-Likely due to prerenal azotemia
-cont IVFs, Cr improving
DM2:
-cont Lantus
-restart premeal insulin
-SSI/accuchecks
Other problems:
Iron deficiency anemia
Essential hypertension: Continue BB only for now
Hyperlipidemia: continue statin
BPH
Constipation
GERD: cont PPI
FULL/Heparin
Anticipated Discharge: > 48 hours
Subjective/Interval History
-
Date of Service: October 30, 2023
Objective Data
-
Labs:
Laboratory Results
10/30/23
07:03
WBC 10.7
Hgb 10.3 L
Hct 30.5 L
Plt Count 315
Sodium 137
Potassium 4.4
Chloride 104
Carbon Dioxide 25
BUN 45 H
Creatinine 1.9 H
Glucose 170 H
Calcium 8.8
Vital Signs:
Vital Signs
Temp Pulse Resp BP Pulse Ox
97.9 F 76 16 150/69 99
10/30/23 07:38 10/30/23 07:38 10/30/23 07:38 10/30/23 07:38 10/30/23 07:38
I&O
10/29/23 10/30/23 10/31/23
06:59 06:59 06:59
Intake Total 1540 / 1540
Balance 1540 / 1540
[2023-10-30] MEDS: NOVOLOG FLEXPEN-HIGH RESISTANCE 2 UNITS SC ×2 (10:13→17:53)
--- NOTE | 2023-10-30 12:47 | W.PN.URO.CBU ---
Today's Communication / Plan
-
Continue local wound care
Keep cavity open with iodoform gauze wick
Awail blood cultures
Assessment / Plan
-
Spontaneous drainage (sterile) from previous pre-pubic abscess site
Gram stain negative
Blood cultures pending
Diagnosis
-
Date of Service: October 30, 2023
-
Patient Diagnosis:
Pre-pubic abscess (recurrent v. residual) with spontaneous bloody drainage 10/29/22. Gram stain negative. Citrobacter koseri originally cultured at time of surgical exploration 07/30/23
s/p bedside I&D with placement of wound wick 10/29/22
Subjective
-
Feels well
No fever/chills
No nausea
No significant incisional discomfort
Objective
-
Vital Signs
Temp Pulse Resp BP Pulse Ox
97.9 F 76 16 150/69 99
10/30/23 07:38 10/30/23 07:38 10/30/23 07:38 10/30/23 07:38 10/30/23 07:38
Intake and Output
10/29/23 10/30/23 10/31/23
06:59 06:59 06:59
Intake Total 1540 / 1540
Balance 1540 / 1540
Intake:
Oral fluids 240 / 240
IV fluids (Total) 1000 / 1000
IV piggybacks 300 / 300
Other:
Number of approximated MODERATE 1
amounts of urine
Laboratory Results
10/30/23 07:03
10/30/23 07:03
Review of Systems
-
Constitutional: No Symptoms
Respiratory: No Symptoms
Cardiac: No Symptoms
Abdomen/GI: No Symptoms
: No Symptoms
Physical Exam
-
General - well nourished, no acute distress
Abdomen - soft, non-tender, pre-pubic wick/dressing in place with minimal drainage
Genitalia - normal
Skin - warm & dry with no rash
Neuro - AOx3, no motor deficits
[2023-10-30 13:09] LABS: Glucose - Point of Care 245 mg/dl (70-99)
[2023-10-30] MEDS: NOVOLOG FLEXPEN-HIGH RESISTANCE 4 UNITS SC (13:28)
[2023-10-30] MEDS: NOVOLOG FLEXPEN 22 UNITS SC ×2 (13:30→17:54)
--- NOTE | 2023-10-30 13:58 | W.PN.ID1 ---
Date of Service
Date of Service: October 30, 2023
Today's Communication
Continue abx.
Assessment / Plan
Suprapubic abscess
-Spontaneous drainage yesterday END FRAZER
Leukocytosis
Renal insufficiency
Hx HTN
DM type II
Recommendations:
Prior cultures were reviewed and revealed growth of Staph. lugdunensis and Citrobacter koseri
Current cultures without growth.
Continue with empiric meropenem and vancomycin.
Await further culture data to guide antimicrobial therapy.
Chief Complaint
-: Other (Suprapubic abscess)
Subjective / Review of Systems
Review of Systems: No Fever and No Chills
Vital Signs / Physical Exam
Vital Signs
Vital Signs
Temp Pulse Resp BP Pulse Ox
97.9 F 76 16 150/69 99
10/30/23 07:38 10/30/23 07:38 10/30/23 07:38 10/30/23 07:38 10/30/23 07:38
Physical Exam
Constitutional: No Acute Distress, Comfortable and Non-toxic
Eyes: Sclera Anicteric
Cardiovascular: S1/S2; Negative S3/S4
Pulmonary: Clear and Non Labored
Gastrointestinal: Soft and Non Tender
Genito-Urinary: Other (Suprapubic wound packed with iodoform.)
Extremities: Negative Edema
Neurological: Awake and Alert
Psychological: Calm
Objective Data
Lab Data
Lab Results
10/30/23 07:03
10/30/23 07:03
Estimated Creat Clear 49 ml/min 10/30/23 07:03
Lactic Acid 0.7 mmol/L (0.7-2.0) 10/29/23 13:53
Total Bilirubin 0.6 mg/dl (0.2-1.3) 10/29/23 10:53
AST 24 U/L (17-59) 10/29/23 10:53
ALT 25 U/L (0-50) 10/29/23 10:53
Alkaline Phosphatase 96 U/L (38-126) 10/29/23 10:53
Most recent labs reviewed.
Micro Results:
10/29/23 13:54 Wound Culture - Preliminary
Groin - Left No growth
Gram Stain - Preliminary
10/29/23 14:15 Blood Culture - Pending
Blood/Venous
10/29/23 13:53 Blood Culture - Pending
Blood/Venous
Imaging:
10/29/2023 CT abdomen/pelvis with contrast: Findings are concerning for an abscess in the left perineum and anterior inferior pelvic wall. Fluid collection with several tiny pockets of air and mild rim enhancement. Measurements are 3 x 2 x 6 cm.
Please see full dictation for additional detail.
--- NOTE | 2023-10-30 14:14 | WOUNDNOTE ---
ANTERIOR PROXIMAL TO PENIS
--- NOTE | 2023-10-30 14:15 | WOUNDNOTE ---
FARZAD RN note: Patient admitted with abscess to perineum
See H&P for complete history.
PMH: IDDM,HTN,obesity, skin cancer surgery head and knee, Rufino gangrene- surgery done 08/10/24.
Wound Location and type/assessment: Patient admitted with: Pre Pubic Abscess, I&D done at bedside by Dr. Yost on 10/29/23. Dr Linn changed outer dressing to area today, instructed to leave iodoform packing in place.
Followed up with patient, gauze and abd pad changed, packing remains in place. Mesh underwear in use to hold dressing in place. Teaching done with and patient at bedside. Wound culture pending.
Appetite: Good.
Pressure redistribution devices in place: Accumax
Plan: Change outer gauze dressing only daily and prn drainage until further orders from Surgeon.
Updated care plan, nurse and will follow along peripherally if needed.
Note to case management of equipment requested for discharge: VN
Recommend follow up with Surgeon.
--- NOTE | 2023-10-30 14:59 | CM ---
Patient seen with Noreen, initial assessment completed. Patient reports he lives in a multiple story home, does had a bed/bath on the first floor. Patient denies DME, reports having [facility] in past, denies SNF. Patient PCP Dr. Herrera,
pharmacy [facility]. Patient became very upset regarding his last stay at the hospital where none of his medications were sent to the pharmacy. CM apologized for patients experience, patient reports 'you people messed it up' and he will not allow
it to happen again. CM will continue to follow for discharge planning needs.
Plan; home no needs vs VN needs.
[2023-10-30 15:16] VITALS: BP 145/92
[2023-10-30] MEDS: HEPARIN 5000 UNITS SC ×2 (16:44→23:10)
[2023-10-30 17:23] LABS: Glucose - Point of Care 175 mg/dl (70-99)
[2023-10-30] MEDS: SENOKOT 17.1999999999999993 MG PO (21:40)
[2023-10-30] MEDS: LIPITOR 20 MG PO (21:40)
[2023-10-30] MEDS: ROXICODONE 5 MG PO (21:40)
[2023-10-30 21:53] LABS: Glucose - Point of Care 85 mg/dl (70-99)
[2023-10-30] MEDS: LANTUS 0.369999999999999996 UNITS SC (22:21)
[2023-10-30 23:24] VITALS: BP 153/71
[2023-10-31] MEDS: MERREM 500 MG IV ×4 (03:48→23:28)
[2023-10-31] MEDS: STERILE WATER FOR INJECTION 10 ML IV ×4 (03:48→23:27)
[2023-10-31] MEDS: TYLENOL 650 MG PO ×3 (04:04→15:38)
[2023-10-31 07:30] VITALS: BP 181/85
[2023-10-31 07:44] LABS: Glucose - Point of Care 117 mg/dl (70-99)
[2023-10-31 07:45] LABS: Hematocrit 29.5 % (39.0-52.0); Mean Corp Hgb Conc. 33.9 g/dL (33.0-37.0); Mean Corpuscular Hgb 30.7 pg (27.0-31.0); Mean Corpuscular Volume 90.5 fL (80.0-94.0); Mean Platelet Volume 9.1 fL (7.4-10.4); Platelet Count 315 10^3/uL (130-400); Red Blood Cell Count 3.26 10^6/uL (4.70-6.10); Red Cell Dist. Width 12.7 % (11.5-14.5); White Blood Cell Count 10.7 10^3/uL (4.8-10.8)
[2023-10-31 07:55] LABS: Vancomycin Random 14.2 ug/ml
[2023-10-31] MEDS: NOVOLOG FLEXPEN 22 UNITS SC ×3 (08:10→17:41)
[2023-10-31] MEDS: NOVOLOG FLEXPEN-HIGH RESISTANCE 1 UNITS SC ×2 (08:11→17:42)
[2023-10-31] MEDS: ASPIR LOW (ENTERIC COATED) 81 MG PO (08:17)
[2023-10-31] MEDS: COLACE 100 MG PO (08:18)
[2023-10-31] MEDS: COREG 6.25 MG PO (08:18)
[2023-10-31] MEDS: HEPARIN 5000 UNITS SC ×3 (08:20→23:22)
[2023-10-31] MEDS: PROTONIX 40 MG PO (08:24)
[2023-10-31 08:31] LABS: Blood Urea Nitrogen 46 mg/dl (9-20); Carbon Dioxide 22 mmol/L (22-30); Chloride 103 mmol/L (98-107); Estimated Creatinine Clearance 55 ml/min; Glucose 105 mg/dl (70-99); Potassium 4.1 mmol/L (3.5-5.1); Sodium 139 mmol/L (135-145); eGFR 44.74
--- NOTE | 2023-10-31 09:49 | W.PN.URO.CBU ---
Today's Communication / Plan
-
Likely will be stable for discharge in 24 hours
Assessment / Plan
-
Spontaneous drainage (sterile) from previous pre-pubic abscess site
Gram stain negative
Blood cultures negative
---
VICK improved
Diagnosis
-
Date of Service: October 31, 2023
-
Patient Diagnosis:
Pre-pubic abscess (recurrent v. residual) with spontaneous bloody drainage 10/29/22. Gram stain negative. Citrobacter koseri originally cultured at time of surgical exploration 07/30/23
s/p bedside I&D with placement of wound wick 10/29/22
---
VICK: improving
Subjective
-
Feels well
Objective
-
Vital Signs
Temp Pulse Resp BP Pulse Ox
97.8 F 72 24 181/85 98
10/31/23 07:30 10/31/23 08:18 10/31/23 07:30 10/31/23 08:18 10/31/23 07:30
Intake and Output
10/30/23 10/31/23 11/01/23
06:59 06:59 06:59
Intake Total 1540 / 1540 1530 / 1530
Balance 1540 / 1540 1530 / 1530
Intake:
Oral fluids 240 / 240 480 / 480
IV fluids (Total) 1000 / 1000 800 / 800
IV piggybacks 300 / 300 250 / 250
Other:
Number of approximated MODERATE 1
amounts of urine
How many times incontinent 2
SMALL amount urine
Laboratory Results
10/31/23 06:31
10/31/23 06:31
Review of Systems
-
Constitutional: No Symptoms
Respiratory: No Symptoms
Cardiac: No Symptoms
Abdomen/GI: No Symptoms
: No Symptoms
Neurological: No Symptoms
Physical Exam
-
General - well nourished, no acute distress
Abdomen - soft, no CVAT, no incisional pain, wound packing removed and replaced
Genitalia - normal
Skin - warm & dry with no rash
--- NOTE | 2023-10-31 09:56 | PHA.VAN.FU ---
Vancomycin Assessment / Plan
- Assessment
Renal Function: SCR Decreasing
WBC's are: WNL
In the past 24 hrs, patient has been: Afebrile
Concomitant Antimicrobials: meropenem
- Assessment - Therapeutic Drug Monitoring
Random Level: 14.2 - drawn ~17.5H after previous dose of 1500mg
- Dosing Plan
Dosing by Level: Re-dose today (Vanc 1500mg)
- Monitoring Plan
Random Level: 11/01 0600
- Follow Up
Pharmacy will continue to follow.
Vancomycin Follow UP
- -
Patient Age: 63
Patient Sex: Male
Vancomycin Day #: 3
Indication: Skin And Soft Tissue
Requesting Provider: Dr. Yeh
Pertinent Antimicrobial Allergies:
no pertinent antibiotic allergies
Height / Weight:
Height 6 ft
Actual Weight 103 kg
Pertinent Past Medical History: DM, Rufino's gangrene, BMI ~31
- Vital Signs / Lab Results
Temp Pulse Resp BP Pulse Ox
97.8 F 72 24 181/85 98
10/31/23 07:30 10/31/23 08:18 10/31/23 07:30 10/31/23 08:18 10/31/23 07:30
Lab Results - Hematology
10/29/23 10/30/23 10/31/23
10:53 07:03 06:31
WBC 14.4 H 10.7 10.7
Lab Results - Chemistry
10/29/23 10/30/23 10/31/23
10:53 07:03 06:31
BUN 61 H 45 H 46 H
Creatinine 2.2 H 1.9 H 1.7 H
Estimated Creat Clear 43 49 55
Albumin 3.8
10/29/23
13:53
Lactic Acid 0.7
Microbiology Results
10/29/23 14:15 Blood Culture - Preliminary
Blood/Venous No Growth in 24 hours- Final report to follow
10/29/23 13:53 Blood Culture - Preliminary
Blood/Venous No Growth in 24 hours- Final report to follow
10/29/23 13:54 Wound Culture - Preliminary
Groin - Left No growth
Gram Stain - Preliminary
Therapeutic Drug Monitoring
Random Vancomycin 14.2 ug/ml 10/31/23 06:31
[2023-10-31 11:40] VITALS: BP 134/58
--- NOTE | 2023-10-31 12:03 | W.PN.HOSP.TC ---
Today's Communication/Plan
-
See bold
Assessment / Plan
Assessment / Plan
Gen: NAD, AAOx3.
Eyes: EOMI, PERRLA, no scleral icterus.
Neck: supple.
CV: Remains RRR, +S1/S2, no m/r/g.
Resp: Remains CTAB, no rales, wheezes, or rhonchi.
Abd: +BS, soft, NT, ND
Skin: No rashes. note, deferred.
Neuro: Remains CN 2-12 intact, non-focal.
Psych: Normal mood and affect.
10/29/23 14:15 Blood/Venous Blood Culture - Preliminary
No Growth in 24 hours- Final report to follow
10/29/23 13:53 Blood/Venous Blood Culture - Preliminary
No Growth in 24 hours- Final report to follow
10/29/23 13:54 Groin - Left Wound Culture - Preliminary
No growth
10/29/23 13:54 Groin - Left Gram Stain - Preliminary
CT A/P: Findings concerning for abscess in the left perineum as described above. Associated surrounding inflammatory change. Mild fecal material throughout the colon. Mild bladder wall thickening probably is partially due to limited distention.
Cystitis and bladder outlet obstruction not excluded.
Suprapubic fullness, perineal abscess:
-quoted from Dr. Yost's note 10/29/23, 'Draining sinus opened at bedside to approx 1cm and explored, revealing approx 8cm deep pocket in region of prior drain placement. Some remaining purulent fluid expressed. Wound packed with iodine gauze.'
-As per urology, further surgical debridement under anesthesia is unlikely
-cont Meropenem/Vanco
-ID/Uro following
-follow BCxs/WCx (as above)
VICK:
-Likely due to prerenal azotemia
-cont IVFs, Cr improving
DM2:
-cont Lantus/premeal Novolog
-SSI/accuchecks
Other problems:
Iron deficiency anemia
Essential hypertension: Continue BB only for now
Hyperlipidemia: continue statin
BPH
Constipation
GERD: cont PPI
Patient's updated at bedside.
FULL/Heparin
Anticipated Discharge: 24 - 48 hours
Subjective/Interval History
-
Date of Service: October 31, 2023
No new complaints.
Objective Data
-
Labs:
Laboratory Results
10/31/23
06:31
WBC 10.7
Hgb 10.0 L
Hct 29.5 L
Plt Count 315
Sodium 139
Potassium 4.1
Chloride 103
Carbon Dioxide 22
BUN 46 H
Creatinine 1.7 H
Glucose 105 H
Calcium 9.0
Vital Signs:
Vital Signs
Temp Pulse Resp BP Pulse Ox
97.9 F 70 20 134/58 98
10/31/23 11:40 10/31/23 11:40 10/31/23 11:40 10/31/23 11:40 10/31/23 11:40
I&O
10/30/23 10/31/23 11/01/23
06:59 06:59 06:59
Intake Total 1540 / 1540 1530 / 1530
Balance 1540 / 1540 1530 / 1530
[2023-10-31] MEDS: VANCOCIN 300 MG IV (12:13)
[2023-10-31] MEDS: VANCOCIN 300 ML IV (12:13)
[2023-10-31 12:46] LABS: Glucose - Point of Care 235 mg/dl (70-99)
[2023-10-31] MEDS: NOVOLOG FLEXPEN-HIGH RESISTANCE 4 UNITS SC (12:57)
[2023-10-31] MEDS: NSS 1000 IV (13:09)
[2023-10-31 15:31] VITALS: BP 152/73
--- NOTE | 2023-10-31 15:49 | CM ---
Patient and seen bedside, discussed referral for [facility] for wound care. Patient and asking why wound care would be needed, patient stating everyone needs to get on the same page before trying to discharge patient. CM explained she was here to
discuss referrals for [facility] for wound care and as far as CM knew there was no discharge order. CM send TT to wound care nurse regarding why recommendation for wound care per patients request. CM will continue to follow for discharge planning needs.
Plan; home with [facility]N for wound care pending referrals to be sent.
--- NOTE | 2023-10-31 16:43 | W.PN.ID1 ---
Date of Service
Date of Service: October 31, 2023
Today's Communication
Continue antibiotics. See below�
Assessment / Plan
Suprapubic abscess
-Spontaneous drainage yesterday [employer]
Leukocytosis
- Improved
Renal insufficiency
Hx HTN
DM type II
Recommendations:
Prior cultures were reviewed and revealed growth of Staph. lugdunensis and Citrobacter koseri
Current cultures without growth. (May be secondary to recent levofloxacin use)
With negative cultures and clinical improvement, will transition back to levofloxacin 750 mg p.o. daily and observe clinically.
����������������������������������������������������������
Chief Complaint
-: Other (Suprapubic abscess)
Subjective / Review of Systems
Review of Systems: No Fever and No Chills
Vital Signs / Physical Exam
Vital Signs
Vital Signs
Temp Pulse Resp BP Pulse Ox
97.9 F 72 20 152/73 98
10/31/23 15:31 10/31/23 15:31 10/31/23 15:31 10/31/23 15:31 10/31/23 15:31
Physical Exam
Constitutional: No Acute Distress, Comfortable and Non-toxic
Eyes: No Conjunctival Hemorrhage and Sclera Anicteric
Gastrointestinal: Non Distended
Wound: Other (Suprapubic wound with packing in place.)
Neurological: Awake and Alert
Psychological: Calm
Objective Data
Lab Data
Lab Results
10/31/23 06:31
10/31/23 06:31
Estimated Creat Clear 55 ml/min 10/31/23 06:31
Lactic Acid 0.7 mmol/L (0.7-2.0) 10/29/23 13:53
Total Bilirubin 0.6 mg/dl (0.2-1.3) 10/29/23 10:53
AST 24 U/L (17-59) 10/29/23 10:53
ALT 25 U/L (0-50) 10/29/23 10:53
Alkaline Phosphatase 96 U/L (38-126) 10/29/23 10:53
Most recent labs reviewed.
Micro Results:
10/29/23 14:15 Blood Culture - Preliminary
Blood/Venous No Growth in 48 hours- Final report to follow
10/29/23 13:53 Blood Culture - Preliminary
Blood/Venous No Growth in 48 hours- Final report to follow
10/29/23 13:54 Wound Culture - Preliminary
Groin - Left No growth
Gram Stain - Preliminary
Imaging:
10/29/2023 CT abdomen/pelvis with contrast: Findings are concerning for an abscess in the left perineum and anterior inferior pelvic wall. Fluid collection with several tiny pockets of air and mild rim enhancement. Measurements are 3 x 2 x 6 cm.
Please see full dictation for additional detail.
[2023-10-31 17:03] LABS: Glucose - Point of Care 125 mg/dl (70-99)
[2023-10-31 21:43] LABS: Glucose - Point of Care 64 mg/dl (70-99)
[2023-10-31] MEDS: ROXICODONE 5 MG PO (22:00)
[2023-10-31] MEDS: LIPITOR 20 MG PO (22:00)
[2023-10-31] MEDS: SENOKOT 17.1999999999999993 MG PO (22:00)
[2023-10-31 22:01] LABS: Glucose - Point of Care 105 mg/dl (70-99)
[2023-10-31] MEDS: LANTUS 0.369999999999999996 UNITS SC (22:38)
[2023-10-31 23:43] VITALS: BP 169/74
[2023-11-01 03:13] LABS: Glucose - Point of Care 226 mg/dl (70-99)
[2023-11-01] MEDS: NSS 1000 IV ×2 (03:34→22:17)
[2023-11-01] MEDS: STERILE WATER FOR INJECTION IV ×4 (04:02→23:33)
[2023-11-01 07:30] VITALS: BP 144/98
[2023-11-01 07:32] LABS: Glucose - Point of Care 170 mg/dl (70-99)
[2023-11-01 08:02] LABS: Hematocrit 31.3 % (39.0-52.0); Hemoglobin 10.6 g/dL (13.0-18.0); Mean Corp Hgb Conc. 33.9 g/dL (33.0-37.0); Mean Corpuscular Hgb 30.7 pg (27.0-31.0); Mean Corpuscular Volume 90.7 fL (80.0-94.0); Mean Platelet Volume 9.2 fL (7.4-10.4); Platelet Count 338 10^3/uL (130-400); Red Blood Cell Count 3.45 10^6/uL (4.70-6.10); Red Cell Dist. Width 12.6 % (11.5-14.5); White Blood Cell Count 11.4 10^3/uL (4.8-10.8)
[2023-11-01 08:04] LABS: Blood Urea Nitrogen 42 mg/dl (9-20); Calcium 9.2 mg/dl (8.4-10.2); Carbon Dioxide 26 mmol/L (22-30); Chloride 101 mmol/L (98-107); Estimated Creatinine Clearance 63 ml/min; Glucose 174 mg/dl (70-99); Potassium 4.3 mmol/L (3.5-5.1); Sodium 137 mmol/L (135-145); eGFR 51.99
[2023-11-01 08:09] LABS: Vancomycin Random 13.9 ug/ml
[2023-11-01] MEDS: NOVOLOG FLEXPEN-HIGH RESISTANCE 2 UNITS SC (08:46)
[2023-11-01] MEDS: NOVOLOG FLEXPEN 22 UNITS SC ×3 (08:48→17:40)
[2023-11-01] MEDS: COLACE 100 MG PO (08:55)
[2023-11-01] MEDS: LEVAQUIN 750 MG PO (08:55)
[2023-11-01] MEDS: ASPIR LOW (ENTERIC COATED) 81 MG PO (08:55)
[2023-11-01] MEDS: PROTONIX 40 MG PO (08:55)
[2023-11-01] MEDS: COREG 6.25 MG PO (08:55)
[2023-11-01] MEDS: HEPARIN 5000 UNITS SC ×2 (08:57→17:41)
--- NOTE | 2023-11-01 10:19 | W.PN.HOSP.TC ---
Today's Communication/Plan
-
see bold
Assessment / Plan
Assessment / Plan
Gen: NAD, AAOx3.
Eyes: EOMI, PERRLA, no scleral icterus.
Neck: supple.
CV: continues to remain RRR, +S1/S2, no m/r/g.
Resp: continues to remain CTAB, no rales, wheezes, or rhonchi.
Abd: +BS, soft, NT, ND
Skin: No rashes. note, deferred.
Neuro: continues to remain CN 2-12 intact, non-focal.
Psych: Normal mood and affect.
10/29/23 14:15 Blood/Venous Blood Culture - Preliminary
No Growth in 48 hours- Final report to follow
10/29/23 13:53 Blood/Venous Blood Culture - Preliminary
No Growth in 48 hours- Final report to follow
10/29/23 13:54 Groin - Left Wound Culture - Preliminary
No growth
10/29/23 13:54 Groin - Left Gram Stain - Preliminary
CT A/P: Findings concerning for abscess in the left perineum as described above. Associated surrounding inflammatory change. Mild fecal material throughout the colon. Mild bladder wall thickening probably is partially due to limited distention.
Cystitis and bladder outlet obstruction not excluded.
Suprapubic fullness, perineal abscess:
-quoted from Dr. Yost's note 10/29/23, 'Draining sinus opened at bedside to approx 1cm and explored, revealing approx 8cm deep pocket in region of prior drain placement. Some remaining purulent fluid expressed. Wound packed with iodine gauze.'
-As per urology, further surgical debridement under anesthesia is unlikely
-previous�cultures grew�Staph. lugdunensis�and�Citrobacter koseri
-was on Meropenem/Vanco, now on Levaquin
-ID/Uro following
-follow BCxs/WCx (as above)
-will d/w urology whether pelvis needs reimaging.
VICK:
-Likely due to prerenal azotemia
-cont IVFs, Cr improving
DM2:
-cont Lantus/premeal Novolog
-SSI/accuchecks
Other problems:
Iron deficiency anemia
Essential hypertension: Continue BB only for now
Hyperlipidemia: continue statin
BPH
Constipation
GERD: cont PPI
FULL/Heparin
Anticipated Discharge: 24 - 48 hours
Subjective/Interval History
-
Date of Service: November 01, 2023
Pt c/o R groin pain, worse with movement.
Objective Data
-
Labs:
Laboratory Results
11/01/23
07:28
WBC 11.4 H
Hgb 10.6 L
Hct 31.3 L
Plt Count 338
Sodium 137
Potassium 4.3
Chloride 101
Carbon Dioxide 26
BUN 42 H
Creatinine 1.5 H
Glucose 174 H
Calcium 9.2
Vital Signs:
Vital Signs
Temp Pulse Resp BP Pulse Ox
98.1 F 77 18 144/98 97
11/01/23 07:30 11/01/23 08:55 11/01/23 07:30 11/01/23 08:55 11/01/23 07:30
I&O
10/31/23 11/01/23 11/02/23
06:59 06:59 06:59
Intake Total 1530 / 1530 0 / 2520
Balance 1530 / 1530 2520 / 2520
[2023-11-01 12:15] LABS: Glucose - Point of Care 212 mg/dl (70-99)
--- NOTE | 2023-11-01 12:21 | W.PN.URO.CBU ---
Today's Communication / Plan
-
Continue wound wick changes
Will teach to clean/probe with H202
Assessment / Plan
-
Spontaneous drainage (sterile) from previous pre-pubic abscess site
Gram stain negative
Blood cultures negative
---
VICK improved
Leukocytosis improved
Diagnosis
-
Date of Service: November 01, 2023
-
Patient Diagnosis:
Pre-pubic abscess (recurrent v. residual) with spontaneous bloody drainage 10/29/22. Gram stain negative. Citrobacter koseri originally cultured at time of surgical exploration 07/30/23
s/p bedside I&D with placement of wound wick 10/29/22
---
VICK: improving
All cultures negative
Subjective
-
c/o bilateral groin pain/difficulty walking
Objective
-
Vital Signs
Temp Pulse Resp BP Pulse Ox
98.1 F 77 18 144/98 97
11/01/23 07:30 11/01/23 08:55 11/01/23 07:30 11/01/23 08:55 11/01/23 07:30
Intake and Output
10/31/23 11/01/23 11/02/23
06:59 06:59 06:59
Intake Total 1530 / 1530 2520 / 2520
Balance 1530 / 1530 2520 / 2520
Intake:
Oral fluids 480 / 480 1560 / 1560
IV fluids (Total) 800 / 800 960 / 960
IV piggybacks 250 / 250
Other:
Number of approximated MODERATE 2
amounts of urine
How many times incontinent 2
SMALL amount urine
Laboratory Results
11/01/23 07:28
11/01/23 07:28
Review of Systems
-
Constitutional: No Symptoms
Respiratory: No Symptoms
Cardiac: No Symptoms
Abdomen/GI: No Symptoms
Musculoskeletal: Joint Pain
Neurological: No Symptoms
Physical Exam
-
General - well nourished, no acute distress
Abdomen - soft, non-tender, no incisional pain, iodoform gauze changed
Genitalia - normal
Skin - warm & dry with no rash
Neuro - AOx3, no motor deficits
Counseling
-
Image pelvis to further evaluate bilateral groin pain: discussed with Hospitalist
[2023-11-01] MEDS: NOVOLOG FLEXPEN-HIGH RESISTANCE 4 UNITS SC (12:28)
[2023-11-01] MEDS: NSS (PRESERVATIVE FREE) 0.5 ML IV (12:44)
[2023-11-01] MEDS: ATIVAN 1 MG IV (12:44)
--- NOTE | 2023-11-01 13:46 | WOUNDNOTE ---
[facility] RN note: Confirmed patient's local pubic wound care instruction for home with Dr. Linn. Dr. Linn stated no packing, swab/probe 4 times a day with full strength hydrogen peroxide. Discharge instructions updated. t/c Updated RN Will who will
give patient supplies. t/c updated patient and local wound care for home.
--- NOTE | 2023-11-01 13:49 | WOUNDNOTE ---
[facility] RN note: Confirmed patient's local pubic wound care instruction for home with Dr. Linn. Dr. Linn stated no packing, swab/probe 4 times a day with full strength hydrogen peroxide. Discharge instructions updated. t/c Updated RN Will who will
give patient supplies. t/c updated patient and local wound care for home. Patient stated he did not feel he needed VN. Instructed patient to follow up with Dr. Linn.
[2023-11-01 16:30] VITALS: BP 144/77
--- NOTE | 2023-11-01 17:08 | W.PN.ID1 ---
Date of Service
Date of Service: November 01, 2023
Today's Communication
Continue abx.
Assessment / Plan
Suprapubic abscess
-Spontaneous drainage yesterday [employer]IST
Leukocytosis
- Improved
Renal insufficiency
Hx HTN
DM type II
Recommendations:
Prior cultures were reviewed and revealed growth of Staph. lugdunensis and Citrobacter koseri
Current cultures without growth. (May be secondary to recent levofloxacin use)
Continue with levofloxacin 750 mg p.o. daily and observe clinically.
����������������������������������������������������������
Chief Complaint
-: Other (Suprapubic abscess)
Subjective / Review of Systems
Review of Systems: No Fever and No Chills
Vital Signs / Physical Exam
Vital Signs
Vital Signs
Temp Pulse Resp BP Pulse Ox
97.5 F 81 20 144/77 98
11/01/23 16:30 11/01/23 16:30 11/01/23 16:30 11/01/23 16:30 11/01/23 16:30
Physical Exam
Constitutional: No Acute Distress, Comfortable and Non-toxic
Eyes: Sclera Anicteric
Pulmonary: Non Labored
Skin: Negative Rash or Jaundice
Wound: Other (Suprapubic wound packed.)
Objective Data
Lab Data
Lab Results
11/01/23 07:28
11/01/23 07:28
Estimated Creat Clear 63 ml/min 11/01/23 07:28
Lactic Acid 0.7 mmol/L (0.7-2.0) 10/29/23 13:53
Total Bilirubin 0.6 mg/dl (0.2-1.3) 10/29/23 10:53
AST 24 U/L (17-59) 10/29/23 10:53
ALT 25 U/L (0-50) 10/29/23 10:53
Alkaline Phosphatase 96 U/L (38-126) 10/29/23 10:53
Most recent labs reviewed.
Micro Results:
10/29/23 14:15 Blood Culture - Preliminary
Blood/Venous No Growth in 72 hours- Final report to follow
10/29/23 13:53 Blood Culture - Preliminary
Blood/Venous No Growth in 72 hours- Final report to follow
10/29/23 13:54 Wound Culture - Final
Groin - Left No growth
Gram Stain - Final
Imaging:
10/29/2023 CT abdomen/pelvis with contrast: Findings are concerning for an abscess in the left perineum and anterior inferior pelvic wall. Fluid collection with several tiny pockets of air and mild rim enhancement. Measurements are 3 x 2 x 6 cm.
Please see full dictation for additional detail.
[2023-11-01 17:25] LABS: Glucose - Point of Care 96 mg/dl (70-99)
[2023-11-01] MEDS: NSS IV (17:39)
[2023-11-01] MEDS: NOVOLOG FLEXPEN-HIGH RESISTANCE 1 UNITS SC (17:40)
[2023-11-01] MEDS: TYLENOL 650 MG PO (19:55)
[2023-11-01] MEDS: ROXICODONE 5 MG PO (21:42)
[2023-11-01] MEDS: SENOKOT 17.1999999999999993 MG PO (21:42)
[2023-11-01] MEDS: LIPITOR 20 MG PO (21:43)
[2023-11-01 22:03] LABS: Glucose - Point of Care 53 mg/dl (70-99)
[2023-11-01 22:12] LABS: Glucose - Point of Care 81 mg/dl (70-99)
[2023-11-01] MEDS: LANTUS 0.369999999999999996 UNITS SC (22:15)
[2023-11-01] MEDS: HEPARIN SC (23:33)
[2023-11-01 23:53] VITALS: BP 154/63
[2023-11-02 03:07] LABS: Glucose - Point of Care 152 mg/dl (70-99)
[2023-11-02] MEDS: TYLENOL 650 MG PO (03:14)
[2023-11-02] MEDS: STERILE WATER FOR INJECTION IV ×3 (04:12→18:13)
[2023-11-02 07:30] VITALS: BP 171/95
[2023-11-02 07:35] LABS: Glucose - Point of Care 119 mg/dl (70-99)
[2023-11-02 08:18] LABS: Hematocrit 30.7 % (39.0-52.0); Hemoglobin 10.4 g/dL (13.0-18.0); Mean Corp Hgb Conc. 33.9 g/dL (33.0-37.0); Mean Corpuscular Volume 91.4 fL (80.0-94.0); Mean Platelet Volume 9.1 fL (7.4-10.4); Platelet Count 319 10^3/uL (130-400); Red Blood Cell Count 3.36 10^6/uL (4.70-6.10); Red Cell Dist. Width 12.6 % (11.5-14.5); White Blood Cell Count 11.4 10^3/uL (4.8-10.8)
[2023-11-02] MEDS: NOVOLOG FLEXPEN 22 UNITS SC ×2 (08:18→12:21)
[2023-11-02] MEDS: HEPARIN 5000 UNITS SC ×2 (08:19→17:30)
[2023-11-02] MEDS: NOVOLOG FLEXPEN-HIGH RESISTANCE 1 UNITS SC ×2 (08:19→12:19)
[2023-11-02] MEDS: ASPIR LOW (ENTERIC COATED) 81 MG PO (08:19)
[2023-11-02] MEDS: COREG 6.25 MG PO (08:19)
[2023-11-02] MEDS: COLACE 100 MG PO (08:19)
[2023-11-02] MEDS: PROTONIX 40 MG PO (08:20)
[2023-11-02] MEDS: LEVAQUIN 750 MG PO (08:20)
[2023-11-02 08:43] LABS: Blood Urea Nitrogen 41 mg/dl (9-20); Calcium 9.1 mg/dl (8.4-10.2); Carbon Dioxide 26 mmol/L (22-30); Chloride 102 mmol/L (98-107); Estimated Creatinine Clearance 63 ml/min; Glucose 128 mg/dl (70-99); Potassium 4.2 mmol/L (3.5-5.1); Sodium 137 mmol/L (135-145); eGFR 51.99
--- NOTE | 2023-11-02 09:15 | W.PN.HOSP.TC ---
Today's Communication/Plan
-
see bold
Assessment / Plan
Assessment / Plan
Gen: remains NAD, AAOx3.
Eyes: remains EOMI, PERRLA, no scleral icterus.
Neck: supple.
CV: RRR, +S1/S2, no m/r/g.
Resp: CTAB, no rales, wheezes, or rhonchi.
Abd: +BS, soft, NT, ND
Skin: No rashes. note, deferred.
Neuro: CN 2-12 intact, non-focal.
Psych: remains Normal mood and affect.
10/29/23 14:15 Blood/Venous Blood Culture - Preliminary
No Growth in 72 hours- Final report to follow
10/29/23 13:53 Blood/Venous Blood Culture - Preliminary
No Growth in 72 hours- Final report to follow
10/29/23 13:54 Groin - Left Wound Culture - Final
No growth
10/29/23 13:54 Groin - Left Gram Stain - Final
CT A/P: Findings concerning for abscess in the left perineum as described above. Associated surrounding inflammatory change. Mild fecal material throughout the colon. Mild bladder wall thickening probably is partially due to limited distention.
Cystitis and bladder outlet obstruction not excluded.
MRI pelvis: Left prepubic soft tissue abscess with an enhancing tract that communicates with the symphysis pubis, where there is severe septic arthritis-osteomyelitis. Small soft tissue abscess inferior to the symphysis pubis. Inflammatory/reactive
or infectious myositis of the bilateral adductor musculature and lower anterior abdominal wall.
Left prepubic soft tissue abscess, septic arthritis-osteomyelitis of the symphysis pubis:
-quoted from Dr. Yost's note 10/29/23, 'Draining sinus opened at bedside to approx 1cm and explored, revealing approx 8cm deep pocket in region of prior drain placement. Some remaining purulent fluid expressed. Wound packed with iodine gauze.'
-As per urology, further surgical debridement under anesthesia not needed
-previous�cultures grew�Staph. lugdunensis�and�Citrobacter koseri, current culture data NEG as above
-was on Meropenem/Vanco, now on Levaquin
-ID/Uro following
-case discussed with ortho (Dr. Bonilla) and general surgery (Dr. Andrews) and both report that the pt needs to be sent to a tertiary care center for I&D. Will contact [facility] for transfer.
VICK:
-Likely due to prerenal azotemia
-Cr has improved to 1.5 with IVFs, cont for now but if creatinine is not improved tomorrow we will stop IV fluids
DM2:
-cont Lantus/premeal Novolog
-SSI/accuchecks
Other problems:
Iron deficiency anemia
Essential hypertension: Continue BB. Start Norvasc 5mg daily.
Hyperlipidemia: continue statin
BPH
Constipation
GERD: cont PPI
FULL/Heparin
Anticipated Discharge: Today
Subjective/Interval History
-
Date of Service: November 02, 2023
No new complaints.
Objective Data
-
Labs:
Laboratory Results
11/02/23
08:03
WBC 11.4 H
Hgb 10.4 L
Hct 30.7 L
Plt Count 319
Sodium 137
Potassium 4.2
Chloride 102
Carbon Dioxide 26
BUN 41 H
Creatinine 1.5 H
Glucose 128 H
Calcium 9.1
Vital Signs:
Vital Signs
Temp Pulse Resp BP Pulse Ox
97.9 F 77 20 171/95 98
11/02/23 07:30 11/02/23 08:19 11/02/23 07:30 11/02/23 08:19 11/02/23 07:30
I&O
11/01/23 11/02/23 11/03/23
06:59 06:59 06:59
Intake Total 2520 / 2520 2149 / 2149
Balance 2520 / 2520 2149 / 2149
--- NOTE | 2023-11-02 09:33 | W.PN.URO.CBU ---
Today's Communication / Plan
-
Discussed with ID and Hospitalist
Will consult orthopedics
Assessment / Plan
-
Spontaneous drainage (sterile) from previous pre-pubic abscess site
Gram stain negative
Blood cultures negative
---
VICK improved
Leukocytosis improved
MRI raises concern for osteomyelitis: suspect might be source of origin
Discussed with Hospitalist
Would advise orthopedic consultation
Diagnosis
-
Date of Service: November 02, 2023
-
Patient Diagnosis:
Pre-pubic abscess (recurrent v. residual) with spontaneous bloody drainage 10/29/22. Gram stain negative. Citrobacter koseri originally cultured at time of surgical exploration 07/30/23
s/p bedside I&D with placement of wound wick 10/29/22
---
VICK: improving
All cultures negative
MRI suggests osteomyelitis of the pubic bone: likely the original source of the abscess given original CT scan images
Subjective
-
Feels well
Weary
Objective
-
Vital Signs
Temp Pulse Resp BP Pulse Ox
97.9 F 77 20 171/95 98
11/02/23 07:30 11/02/23 08:19 11/02/23 07:30 11/02/23 08:19 11/02/23 07:30
Intake and Output
11/01/23 11/02/23 11/03/23
06:59 06:59 06:59
Intake Total 2520 / 2520 2149 / 2149
Balance 2520 / 2520 2149 / 2149
Intake:
Oral fluids 1560 / 1560 1200 / 1200
IV fluids (Total) 960 / 960 950 / 950
Other:
Number of approximated MODERATE 2 2
amounts of urine
Laboratory Results
11/02/23 08:03
11/02/23 08:03
Review of Systems
-
Constitutional: No Symptoms
Respiratory: No Symptoms
Cardiac: No Symptoms
Abdomen/GI: Abdominal Pain
: No Symptoms
Neurological: No Symptoms
Physical Exam
-
General - well nourished, no acute distress
Abdomen - soft, non-tender, no CVAT, no incisional pain, wound wick changed again (mucopurulent drainage)
Genitalia - normal, no penile or scrotal cellulitis
Skin - warm & dry with no rash
Neuro - AOx3, no motor deficits
--- NOTE | 2023-11-02 10:00 | W.PN.ID1 ---
Date of Service
Date of Service: November 02, 2023
Today's Communication
Continue antibiotics. See below�
Assessment / Plan
Suprapubic abscess
Septic arthritis of symphysis pubis
Osteomyelitis of the symphysis pubis
Leukocytosis
- Improved
Renal insufficiency
Hx HTN
DM type II
Recommendations:
Prior cultures were reviewed and revealed growth of Staph. lugdunensis and Citrobacter koseri
Current cultures without growth. (May be secondary to recent levofloxacin use)
MRI findings reviewed with patient in detail.
I had an extensive conversation with the patient regarding path moving forward. I informed him that he will likely need a 6-week course of antibiotics (at least).
Options of IV cefazolin versus oral levofloxacin therapy reviewed. Risks and benefits of each option reviewed in detail.
- All questions answered to patient's satisfaction.
- He will decide on which route he would like to pursue.
Case also discussed with Hospitalist and Urology. Orthopedics to evaluate patient in regards to symphysis pubis septic arthritis and osteomyelitis.
For now, will transition to cefazolin 2 g IV every 8 hours.
Check baseline ESR and CRP.
If patient opts for IV therapy, will place PICC line.
����������������������������������������������������������
Chief Complaint
-: Other (Suprapubic abscess; symphysis pubis osteomyelitis)
Subjective / Review of Systems
Continue. Suprapubic area continues to drain. Packing in place. Patient admits to discomfort in the suprapubic area extending out to the groin regions.
Review of Systems: No Fever and No Chills
Vital Signs / Physical Exam
Vital Signs
Vital Signs
Temp Pulse Resp BP Pulse Ox
97.9 F 77 20 171/95 98
11/02/23 07:30 11/02/23 08:19 11/02/23 07:30 11/02/23 08:19 11/02/23 07:30
Physical Exam
Constitutional: No Acute Distress, Comfortable and Non-toxic
Head: Normocephalic
Eyes: No Conjunctival Hemorrhage and Sclera Anicteric
Pulmonary: Non Labored
Genito-Urinary: Other (Suprapubic area with packing in place. Mild tenderness. No significant induration. No periwound erythema.)
Neurological: Awake and Alert
Psychological: Calm
Objective Data
Lab Data
Lab Results
11/02/23 08:03
11/02/23 08:03
Estimated Creat Clear 63 ml/min 11/02/23 08:03
Lactic Acid 0.7 mmol/L (0.7-2.0) 10/29/23 13:53
Total Bilirubin 0.6 mg/dl (0.2-1.3) 10/29/23 10:53
AST 24 U/L (17-59) 10/29/23 10:53
ALT 25 U/L (0-50) 10/29/23 10:53
Alkaline Phosphatase 96 U/L (38-126) 10/29/23 10:53
Most recent labs reviewed.
Micro Results:
10/29/23 14:15 Blood Culture - Preliminary
Blood/Venous No Growth in 72 hours- Final report to follow
10/29/23 13:53 Blood Culture - Preliminary
Blood/Venous No Growth in 72 hours- Final report to follow
10/29/23 13:54 Wound Culture - Final
Groin - Left No growth
Gram Stain - Final
Imaging:
11/01/2023 MRI pelvis W & W/O contrast: Complex collection in the left prepubic soft tissue measuring 2.6 x 1.5 x 4.7 cm. Low signal intensity foci within this collection may represent gas or packing material. An enhancing tract continuous with the
collection appears to communicate with the symphysis pubis. The parasymphyseal pubic bodies show a large amount of symmetric bilateral bone marrow edema and enhancement compatible with osteomyelitis and septic arthritis. Adjacent soft tissue edema
in the bilateral adductor musculature and lower anterior abdominal wall musculature. An additional rim-enhancing complex collection/abscess inferior to the symphysis pubis measures 2.5 x 1.6 x 1.7 cm.
10/29/2023 CT abdomen/pelvis with contrast: Findings are concerning for an abscess in the left perineum and anterior inferior pelvic wall. Fluid collection with several tiny pockets of air and mild rim enhancement. Measurements are 3 x 2 x 6 cm.
Please see full dictation for additional detail.
[2023-11-02 10:51] LABS: Erythrocyte Sed Rate 99 mm/hour (0-20)
[2023-11-02] MEDS: ANCEF 10 IV ×2 (12:02→17:36)
[2023-11-02] MEDS: NSS 1000 IV (12:07)
[2023-11-02] MEDS: ROXICODONE 5 MG PO ×2 (12:07→21:53)
[2023-11-02 12:09] LABS: Glucose - Point of Care 105 mg/dl (70-99)
--- NOTE | 2023-11-02 13:27 | W.PN.UPDATE ---
Update Note
Progress Note Update
Case discussed with the transfer center at [facility]. They are awaiting a callback from orthopedic surgery. They have my cell phone number.
[2023-11-02] MEDS: APRESOLINE 25 MG PO ×3 (14:28→21:55)
--- NOTE | 2023-11-02 15:09 | W.PN.UPDATE ---
Update Note
Progress Note Update
Case discussed with transfer center at [facility] with Dr. Benjamin from orthopedics on the line. Dr. Benjamin agrees with transfer for I&D but would like pt under hospitalist service. Will discuss with hospitalist at [facility].
[2023-11-02 15:56] VITALS: BP 150/93
[2023-11-02 16:57] LABS: Glucose - Point of Care 69 mg/dl (70-99)
[2023-11-02 17:04] LABS: Glucose - Point of Care 70 mg/dl (70-99)
--- NOTE | 2023-11-02 17:23 | PTCARENOTE ---
[facility] ([phone]) called about [phone] Artis Kwon. His transfer is being pushed back to Sunday as they are waiting for a buy back letter. If any worsening of status, give them a call
[2023-11-02] MEDS: NOVOLOG FLEXPEN 15 UNITS SC (17:30)
[2023-11-02] MEDS: NOVOLOG FLEXPEN-HIGH RESISTANCE SC (17:35)
[2023-11-02 21:48] LABS: Glucose - Point of Care 142 mg/dl (70-99)
[2023-11-02] MEDS: LANTUS 0.369999999999999996 UNITS SC (21:54)
[2023-11-02] MEDS: SENOKOT 17.1999999999999993 MG PO (21:54)
[2023-11-02] MEDS: LIPITOR 20 MG PO (21:55)
[2023-11-02 23:26] VITALS: BP 157/79
[2023-11-03] MEDS: STERILE WATER FOR INJECTION IV ×2 (00:23→02:44)
[2023-11-03] MEDS: NSS 1000 IV ×2 (00:58→11:00)
[2023-11-03] MEDS: ANCEF 10 IV ×3 (01:00→17:39)
[2023-11-03] MEDS: HEPARIN SC (01:02)
[2023-11-03] MEDS: ROXICODONE 5 MG PO (02:46)
[2023-11-03 07:00] VITALS: BP 157/76
[2023-11-03 07:31] LABS: Glucose - Point of Care 145 mg/dl (70-99)
[2023-11-03 08:13] LABS: Hematocrit 30.1 % (39.0-52.0); Hemoglobin 10.2 g/dL (13.0-18.0); Mean Corp Hgb Conc. 33.9 g/dL (33.0-37.0); Mean Corpuscular Hgb 30.4 pg (27.0-31.0); Mean Corpuscular Volume 89.9 fL (80.0-94.0); Mean Platelet Volume 9.2 fL (7.4-10.4); Platelet Count 348 10^3/uL (130-400); Red Blood Cell Count 3.35 10^6/uL (4.70-6.10); Red Cell Dist. Width 12.6 % (11.5-14.5); White Blood Cell Count 11.9 10^3/uL (4.8-10.8)
[2023-11-03] MEDS: NOVOLOG FLEXPEN-HIGH RESISTANCE SC (08:21)
[2023-11-03] MEDS: NOVOLOG FLEXPEN-HIGH RESISTANCE 1 UNITS SC ×2 (08:35→17:36)
[2023-11-03] MEDS: NOVOLOG FLEXPEN 22 UNITS SC (08:35)
[2023-11-03] MEDS: HEPARIN 5000 UNITS SC ×2 (08:43→17:33)
[2023-11-03 08:44] LABS: Blood Urea Nitrogen 36 mg/dl (9-20); Calcium 8.9 mg/dl (8.4-10.2); Carbon Dioxide 25 mmol/L (22-30); Chloride 105 mmol/L (98-107); Estimated Creatinine Clearance 67 ml/min; Glucose 127 mg/dl (70-99); Sodium 137 mmol/L (135-145); eGFR 56.48
[2023-11-03] MEDS: ASPIR LOW (ENTERIC COATED) 81 MG PO (08:44)
[2023-11-03] MEDS: COLACE 100 MG PO (08:44)
[2023-11-03] MEDS: PROTONIX 40 MG PO (08:44)
[2023-11-03] MEDS: COREG 6.25 MG PO (08:44)
[2023-11-03] MEDS: APRESOLINE 25 MG PO (08:45)
[2023-11-03 08:55] LABS: Potassium 4.4 mmol/L (3.5-5.1)
--- NOTE | 2023-11-03 11:10 | W.PN.ID1 ---
Date of Service
Date of Service: November 03, 2023
Today's Communication
Continue antibiotics.
Assessment / Plan
Suprapubic abscess
Septic arthritis of symphysis pubis
Osteomyelitis of the symphysis pubis
Leukocytosis
Elevated ESR / CRP
Renal insufficiency
Hx HTN
DM type II
Recommendations:
Prior cultures were reviewed and revealed growth of Staph. lugdunensis and Citrobacter koseri
Current cultures without growth. (May be secondary to recent levofloxacin use)
MRI findings reviewed with patient in detail.
Continue cefazolin 2 g IV every 8 hours.
Patient for transfer to [facility] for potential surgical exploration of the area.
����������������������������������������������������������
Chief Complaint
-: Other (Suprapubic abscess; symphysis pubis osteomyelitis)
Subjective / Review of Systems
Review of Systems: No Fever and No Chills
Vital Signs / Physical Exam
Vital Signs
Vital Signs
Temp Pulse Resp BP Pulse Ox
98.3 F 73 18 157/76 98
11/03/23 07:00 11/03/23 07:00 11/03/23 07:00 11/03/23 07:00 11/03/23 07:00
Physical Exam
Constitutional: No Acute Distress, Comfortable and Non-toxic
Eyes: Sclera Anicteric
Pulmonary: Non Labored
Gastrointestinal: Soft, Non Distended, No Rebound and No Guarding
Genito-Urinary: Other (Suprapubic packing remains in place. Still with some purulent drainage.)
Neurological: Awake and Alert
Psychological: Calm
Objective Data
Lab Data
Lab Results
11/03/23 07:41
11/03/23 07:41
ESR Cancelled 11/02/23 10:02
Estimated Creat Clear 67 ml/min 11/03/23 07:41
Lactic Acid 0.7 mmol/L (0.7-2.0) 10/29/23 13:53
Total Bilirubin 0.6 mg/dl (0.2-1.3) 10/29/23 10:53
AST 24 U/L (17-59) 10/29/23 10:53
ALT 25 U/L (0-50) 10/29/23 10:53
Alkaline Phosphatase 96 U/L (38-126) 10/29/23 10:53
C-Reactive Protein 54.00 mg/L (0.0-10.00) H 11/02/23 08:03
Most recent labs reviewed.
Micro Results:
10/29/23 14:15 Blood Culture - Preliminary
Blood/Venous No Growth in 4 days- Final report to follow
10/29/23 13:53 Blood Culture - Preliminary
Blood/Venous No Growth in 4 days- Final report to follow
10/29/23 13:54 Wound Culture - Final
Groin - Left No growth
Gram Stain - Final
Imaging:
11/01/2023 MRI pelvis W & W/O contrast: Complex collection in the left prepubic soft tissue measuring 2.6 x 1.5 x 4.7 cm. Low signal intensity foci within this collection may represent gas or packing material. An enhancing tract continuous with the
collection appears to communicate with the symphysis pubis. The parasymphyseal pubic bodies show a large amount of symmetric bilateral bone marrow edema and enhancement compatible with osteomyelitis and septic arthritis. Adjacent soft tissue edema
in the bilateral adductor musculature and lower anterior abdominal wall musculature. An additional rim-enhancing complex collection/abscess inferior to the symphysis pubis measures 2.5 x 1.6 x 1.7 cm.
10/29/2023 CT abdomen/pelvis with contrast: Findings are concerning for an abscess in the left perineum and anterior inferior pelvic wall. Fluid collection with several tiny pockets of air and mild rim enhancement. Measurements are 3 x 2 x 6 cm.
Please see full dictation for additional detail.
--- NOTE | 2023-11-03 11:49 | W.PN.HOSP.TC ---
Today's Communication/Plan
-
Awaiting transfer to [place]
Assessment / Plan
Assessment / Plan
Gen: Continues to remain NAD, AAOx3.
Eyes: Continues to remain EOMI, PERRLA, no scleral icterus.
Neck: supple.
CV: RRR, +S1/S2, no m/r/g.
Resp: CTAB, no rales, wheezes, or rhonchi.
Abd: +BS, soft, NT, ND
Skin: No rashes. note, deferred.
Neuro: CN 2-12 intact, non-focal.
Psych: Continues to normal mood and affect.
10/29/23 14:15 Blood/Venous Blood Culture - Preliminary
No Growth in 4 days- Final report to follow
10/29/23 13:53 Blood/Venous Blood Culture - Preliminary
No Growth in 4 days- Final report to follow
10/29/23 13:54 Groin - Left Wound Culture - Final
No growth
10/29/23 13:54 Groin - Left Gram Stain - Final
CT A/P: Findings concerning for abscess in the left perineum as described above. Associated surrounding inflammatory change. Mild fecal material throughout the colon. Mild bladder wall thickening probably is partially due to limited distention.
Cystitis and bladder outlet obstruction not excluded.
MRI pelvis: Left prepubic soft tissue abscess with an enhancing tract that communicates with the symphysis pubis, where there is severe septic arthritis-osteomyelitis. Small soft tissue abscess inferior to the symphysis pubis. Inflammatory/reactive
or infectious myositis of the bilateral adductor musculature and lower anterior abdominal wall.
Left prepubic soft tissue abscess, septic arthritis-osteomyelitis of the symphysis pubis:
-quoted from Dr. Yost's note 10/29/23, 'Draining sinus opened at bedside to approx 1cm and explored, revealing approx 8cm deep pocket in region of prior drain placement. Some remaining purulent fluid expressed. Wound packed with iodine gauze.'
-As per urology, further surgical debridement under anesthesia not needed
-previous�cultures grew�Staph. lugdunensis�and�Citrobacter koseri, current culture data NEG as above
-was on Meropenem/Vanco, now on Ancef
-ID/Uro's on consult
-Patient has been accepted at [facility] on the orthopedic service for I&D of pubic symphysis septic arthritis with likely inferior abscess
VICK:
-Likely due to prerenal azotemia
-Cr has improved to 1.4 with IVFs, cont for now
DM2:
-cont Lantus, decrease premeal Novolog to 20U
-SSI/accuchecks
Other problems:
Iron deficiency anemia
Essential hypertension: Continue BB. Increase hydralazine.
Hyperlipidemia: continue statin
BPH
Constipation
GERD: cont PPI
FULL/Heparin
Anticipated Discharge: 24 - 48 hours
Subjective/Interval History
-
Date of Service: November 03, 2023
No new complaints.
Objective Data
-
Labs:
Laboratory Results
11/03/23
07:41
WBC 11.9 H
Hgb 10.2 L
Hct 30.1 L
Plt Count 348
Sodium 137
Potassium 4.4
Chloride 105
Carbon Dioxide 25
BUN 36 H
Creatinine 1.4 H
Glucose 127 H
Calcium 8.9
Vital Signs:
Vital Signs
Temp Pulse Resp BP Pulse Ox
98.3 F 73 18 157/76 98
11/03/23 07:00 11/03/23 07:00 11/03/23 07:00 11/03/23 07:00 11/03/23 07:00
I&O
11/02/23 11/03/23 11/04/23
06:59 06:59 06:59
Intake Total 2150 / 2150 1080 / 1080
Balance 2149 1080 / 1080
[2023-11-03 11:58] LABS: Glucose - Point of Care 209 mg/dl (70-99)
--- NOTE | 2023-11-03 12:42 | CM ---
Per nursing note from 11/02: patient transfer to [place] being pushed back to Sunday as they are awaiting a buy back letter.
Patient seen bedside with Hospitalist, plan for transfer to [place] on Sunday. CM will continue to follow for discharge planning needs.
Plan; transfer to [place] Sunday.
[2023-11-03] MEDS: NOVOLOG FLEXPEN 20 UNITS SC ×2 (13:00→17:37)
[2023-11-03] MEDS: NOVOLOG FLEXPEN-HIGH RESISTANCE 4 UNITS SC (13:00)
[2023-11-03] MEDS: NOVOLOG FLEXPEN SC (13:06)
[2023-11-03 15:00] VITALS: BP 147/73
[2023-11-03 16:46] LABS: Glucose - Point of Care 103 mg/dl (70-99)
[2023-11-03] MEDS: TYLENOL 650 MG PO (17:31)
[2023-11-03] MEDS: APRESOLINE 50 MG PO ×2 (17:32→21:32)
[2023-11-03 21:32] LABS: Glucose - Point of Care 110 mg/dl (70-99)
[2023-11-03] MEDS: LANTUS 0.369999999999999996 UNITS SC (21:32)
[2023-11-03] MEDS: SENOKOT 17.1999999999999993 MG PO (21:32)
[2023-11-03] MEDS: LIPITOR 20 MG PO (21:32)
[2023-11-03 23:57] VITALS: BP 146/75
[2023-11-04] MEDS: HEPARIN SC (00:51)
[2023-11-04] MEDS: NSS 1000 IV ×2 (00:51→13:28)
[2023-11-04] MEDS: ANCEF 10 IV ×3 (00:51→17:31)
[2023-11-04] MEDS: ROXICODONE 5 MG PO ×2 (00:56→21:52)
[2023-11-04] MEDS: TYLENOL 650 MG PO ×2 (05:57→19:23)
[2023-11-04 07:00] VITALS: BP 145/64
[2023-11-04 08:02] LABS: Glucose - Point of Care 121 mg/dl (70-99)
--- NOTE | 2023-11-04 08:29 | W.PN.UPDATE ---
Update Note
Progress Note Update
pt stable
no fevers/wbc slightly elevated but not trending up
exam- some purulent drainage from incision site with wick- no erythema/crepitus or tissue compromie
plan
given complexity of infx and involvment of bone- for transfer to [place]- expected tomorrow
--- NOTE | 2023-11-04 09:13 | VATNOTE ---
on rounds right arm with 2X3 cm cord. Warm compress applied for comfort. Will monitor closely.
--- NOTE | 2023-11-04 09:18 | W.PN.HOSP.TC ---
Today's Communication/Plan
-
see bold
Assessment / Plan
Assessment / Plan
Gen: NAD, AAOx3.
Eyes: EOMI, PERRLA, no scleral icterus.
Neck: supple.
CV: remains RRR, +S1/S2, no m/r/g.
Resp: remains CTAB, no rales, wheezes, or rhonchi.
Abd: +BS, soft, NT, ND
Skin: No rashes. note, deferred.
Neuro: remains CN 2-12 intact, non-focal.
Psych: Continues to normal mood and affect.
10/29/23 14:15 Blood/Venous Blood Culture - Final
No Growth - Final Report
10/29/23 13:53 Blood/Venous Blood Culture - Final
No Growth - Final Report
10/29/23 13:54 Groin - Left Wound Culture - Final
No growth
10/29/23 13:54 Groin - Left Gram Stain - Final
CT A/P: Findings concerning for abscess in the left perineum as described above. Associated surrounding inflammatory change. Mild fecal material throughout the colon. Mild bladder wall thickening probably is partially due to limited distention.
Cystitis and bladder outlet obstruction not excluded.
MRI pelvis: Left prepubic soft tissue abscess with an enhancing tract that communicates with the symphysis pubis, where there is severe septic arthritis-osteomyelitis. Small soft tissue abscess inferior to the symphysis pubis. Inflammatory/reactive
or infectious myositis of the bilateral adductor musculature and lower anterior abdominal wall.
Left prepubic soft tissue abscess, septic arthritis-osteomyelitis of the symphysis pubis:
-quoted from Dr. Yost's note 10/29/23, 'Draining sinus opened at bedside to approx 1cm and explored, revealing approx 8cm deep pocket in region of prior drain placement. Some remaining purulent fluid expressed. Wound packed with iodine gauze.'
-As per urology, further surgical debridement under anesthesia not needed
-previous�cultures grew�Staph. lugdunensis�and�Citrobacter koseri, current culture data NEG as above
-was on Meropenem/Vanco, now on Ancef
-ID/Uro on consult
-Patient has been accepted at [facility] on the orthopedic service for I&D of pubic symphysis septic arthritis with likely inferior abscess. Awaiting buyback letter prior to transfer.
VICK:
-Likely due to prerenal azotemia
-Cr has improved to 1.4 with IVFs, cont for now
DM2:
-cont Lantus/premeal Novolog
-SSI/accuchecks
Other problems:
Iron deficiency anemia
Essential hypertension: Continue BB/hydralazine.
Hyperlipidemia: continue statin
BPH
Constipation
GERD: cont PPI
FULL/Heparin
Anticipated Discharge: Within 24 hours
Subjective/Interval History
-
Date of Service: November 04, 2023
Objective Data
-
Vital Signs:
Vital Signs
Temp Pulse Resp BP Pulse Ox
98.4 F 75 16 145/64 100
11/04/23 07:00 11/04/23 07:00 11/04/23 07:00 11/04/23 07:00 11/04/23 07:00
I&O
11/03/23 11/04/23 11/05/23
06:59 06:59 06:59
Intake Total 1080 / 1080 780 / 780
Balance 1080 / 1080 780 / 780
[2023-11-04 09:55] LABS: % Basophils 0.6 % (0-2); % Eosinophils 2.6 % (0-6); % Immature Granulocytes 0.3 % (0-0.5); % Lymphocytes 11.8 % (20.5-51.1); % Neutrophils 76.7 % (42.2-75.2); Absolute Basophils 0.1 10^3/uL (0-0.2); Absolute Eosinophils 0.3 10^3/uL (0-0.7); Absolute Lymphocytes 1.4 10^3/uL (1.2-3.4); Absolute Neutrophils 9.3 10^3/uL (1.4-6.5); Hematocrit 29.3 % (39.0-52.0); Hemoglobin 9.7 g/dL (13.0-18.0); Mean Corp Hgb Conc. 33.1 g/dL (33.0-37.0); Mean Corpuscular Hgb 30.8 pg (27.0-31.0); Mean Platelet Volume 9.6 fL (7.4-10.4); Nucleated Red Blood Cells % 0 % (-); Platelet Count 279 10^3/uL (130-400); Red Blood Cell Count 3.15 10^6/uL (4.70-6.10); Red Cell Dist. Width 12.6 % (11.5-14.5); White Blood Cell Count 12.1 10^3/uL (4.8-10.8)
[2023-11-04 10:18] LABS: Blood Urea Nitrogen 41 mg/dl (9-20); Calcium 8.6 mg/dl (8.4-10.2); Carbon Dioxide 25 mmol/L (22-30); Chloride 102 mmol/L (98-107); Estimated Creatinine Clearance 72 ml/min; Glucose 264 mg/dl (70-99); Potassium 4.5 mmol/L (3.5-5.1); Sodium 135 mmol/L (135-145); eGFR > 60.00
[2023-11-04] MEDS: NOVOLOG FLEXPEN 20 UNITS SC ×3 (10:57→16:54)
[2023-11-04] MEDS: NOVOLOG FLEXPEN-HIGH RESISTANCE 1 UNITS SC (10:58)
[2023-11-04] MEDS: PROTONIX 40 MG PO (11:03)
[2023-11-04] MEDS: COREG 6.25 MG PO (11:03)
[2023-11-04] MEDS: HEPARIN 5000 UNITS SC ×2 (11:03→16:53)
[2023-11-04] MEDS: APRESOLINE 50 MG PO ×3 (11:04→23:16)
[2023-11-04] MEDS: COLACE 100 MG PO (11:04)
[2023-11-04] MEDS: ASPIR LOW (ENTERIC COATED) 81 MG PO (11:11)
[2023-11-04 12:58] LABS: Glucose - Point of Care 197 mg/dl (70-99)
[2023-11-04] MEDS: NOVOLOG FLEXPEN-HIGH RESISTANCE 2 UNITS SC ×2 (13:13→16:54)
--- NOTE | 2023-11-04 14:09 | CM ---
CM reviewed chart, patient awaiting transfer to [place]. CM will continue to follow for discharge planning needs.
Plan; transfer to [place] for Sunday, awaiting buy back letter.
[2023-11-04 15:00] VITALS: BP 143/72
[2023-11-04 16:31] LABS: Glucose - Point of Care 160 mg/dl (70-99)
[2023-11-04 21:11] LABS: Glucose - Point of Care 78 mg/dl (70-99)
[2023-11-04] MEDS: LANTUS SC (23:00)
[2023-11-04 23:05] VITALS: BP 161/80
[2023-11-04] MEDS: LIPITOR 20 MG PO (23:17)
[2023-11-04] MEDS: SENOKOT 17.1999999999999993 MG PO (23:18)
[2023-11-04] MEDS: LANTUS 0.170000000000000012 UNITS SC (23:19)
[2023-11-05] MEDS: HEPARIN 5000 UNITS SC ×3 (01:21→16:43)
[2023-11-05] MEDS: ANCEF 10 IV ×3 (01:23→17:54)
[2023-11-05] MEDS: NSS 1000 IV ×2 (02:00→14:47)
--- NOTE | 2023-11-05 05:00 | PTCARENOTE ---
Pt stated that packing just fell out. 4x4 saturated w/sang drainage. Redressed w/several 4x4's & ABD.
[2023-11-05 07:00] VITALS: BP 163/88
[2023-11-05 07:30] LABS: Glucose - Point of Care 146 mg/dl (70-99)
[2023-11-05 07:55] LABS: % Basophils 0.5 % (0-2); % Eosinophils 3.7 % (0-6); % Immature Granulocytes 0.9 % (0-0.5); % Lymphocytes 12.8 % (20.5-51.1); % Monocytes 10.2 % (1.7-9.3); % Neutrophils 71.9 % (42.2-75.2); Absolute Basophils 0.1 10^3/uL (0-0.2); Absolute Eosinophils 0.4 10^3/uL (0-0.7); Absolute Immature Granulocytes 0.1 10^3/uL (0-0.05); Absolute Lymphocytes 1.5 10^3/uL (1.2-3.4); Absolute Monocytes 1.2 10^3/uL (0.1-0.6); Absolute Neutrophils 8.3 10^3/uL (1.4-6.5); Hematocrit 30.2 % (39.0-52.0); Hemoglobin 9.9 g/dL (13.0-18.0); Mean Corp Hgb Conc. 32.8 g/dL (33.0-37.0); Mean Corpuscular Hgb 30.6 pg (27.0-31.0); Mean Corpuscular Volume 93.2 fL (80.0-94.0); Mean Platelet Volume 9.5 fL (7.4-10.4); Nucleated Red Blood Cells % 0 % (-); Platelet Count 302 10^3/uL (130-400); Red Blood Cell Count 3.24 10^6/uL (4.70-6.10); Red Cell Dist. Width 12.4 % (11.5-14.5); White Blood Cell Count 11.6 10^3/uL (4.8-10.8)
[2023-11-05] MEDS: NOVOLOG FLEXPEN 20 UNITS SC ×3 (08:05→17:53)
[2023-11-05] MEDS: NOVOLOG FLEXPEN-HIGH RESISTANCE 1 UNITS SC ×2 (08:05→17:52)
[2023-11-05] MEDS: COREG 6.25 MG PO (08:06)
[2023-11-05] MEDS: COLACE 100 MG PO (08:06)
[2023-11-05] MEDS: ASPIR LOW (ENTERIC COATED) 81 MG PO (08:06)
[2023-11-05] MEDS: PROTONIX 40 MG PO (08:06)
[2023-11-05] MEDS: APRESOLINE 50 MG PO ×3 (08:06→21:59)
[2023-11-05] MEDS: TYLENOL 650 MG PO (08:11)
--- NOTE | 2023-11-05 08:36 | W.PN.HOSP.TC ---
Today's Communication/Plan
-
Continue antibiotics. Awaiting for transfer to [place]
Assessment / Plan
Assessment / Plan
Gen: NAD, AAOx3.
Eyes: EOMI, PERRLA, no scleral icterus.
Neck: supple.
CV: remains RRR, +S1/S2, no m/r/g.
Resp: remains CTAB, no rales, wheezes, or rhonchi.
Abd: +BS, soft, NT, ND
Skin: No rashes. note, deferred.
Neuro: remains CN 2-12 intact, non-focal.
Psych: Continues to normal mood and affect.
10/29/23 14:15 Blood/Venous Blood Culture - Final
No Growth - Final Report
10/29/23 13:53 Blood/Venous Blood Culture - Final
No Growth - Final Report
10/29/23 13:54 Groin - Left Wound Culture - Final
No growth
10/29/23 13:54 Groin - Left Gram Stain - Final
CT A/P: Findings concerning for abscess in the left perineum as described above. Associated surrounding inflammatory change. Mild fecal material throughout the colon. Mild bladder wall thickening probably is partially due to limited distention.
Cystitis and bladder outlet obstruction not excluded.
MRI pelvis: Left prepubic soft tissue abscess with an enhancing tract that communicates with the symphysis pubis, where there is severe septic arthritis-osteomyelitis. Small soft tissue abscess inferior to the symphysis pubis. Inflammatory/reactive
or infectious myositis of the bilateral adductor musculature and lower anterior abdominal wall.
A/P:
Left prepubic soft tissue abscess, septic arthritis-osteomyelitis of the symphysis pubis:
-quoted from Dr. Yost's note 10/29/23, 'Draining sinus opened at bedside to approx 1cm and explored, revealing approx 8cm deep pocket in region of prior drain placement. Some remaining purulent fluid expressed. Wound packed with iodine gauze.'
-As per urology, further surgical debridement under anesthesia not needed
-previous�cultures grew�Staph. lugdunensis�and�Citrobacter koseri, current culture data NEG as above
-was on Meropenem/Vanco, now on Ancef
-ID/Uro on consult
-Patient has been accepted at [facility] on the orthopedic service for I&D of pubic symphysis septic arthritis with likely inferior abscess. Signed buyback letter today on 11/05.
VICK:
-Likely due to prerenal azotemia
-Cr has improved to 1.5 with IVFs, cont for now
DM2:
-cont Lantus/premeal Novolog
-SSI/accuchecks
Other problems:
Iron deficiency anemia
Essential hypertension: Continue BB/hydralazine.
Hyperlipidemia: continue statin
BPH
Constipation
GERD: cont PPI
FULL/Heparin
Anticipated Discharge: 24 - 48 hours
Subjective/Interval History
-
Date of Service: November 05, 2023
Patient has any chest pain or shortness of breath. Afebrile
Objective Data
-
Labs:
Laboratory Results
11/05/23 11/05/23
07:12 07:14
WBC 11.6 H
Hgb 9.9 L
Hct 30.2 L
Plt Count 302
Sodium Pending
Potassium Pending
Chloride Pending
Carbon Dioxide Pending
BUN Pending
Creatinine Pending
Glucose Pending
Calcium Pending
Vital Signs:
Vital Signs
Temp Pulse Resp BP Pulse Ox
98.1 F 79 20 163/88 99
11/05/23 07:00 11/05/23 07:00 11/05/23 07:00 11/05/23 07:00 11/05/23 07:00
I&O
11/04/23 11/05/23 11/06/23
06:59 06:59 06:59
Intake Total 780 / 780 3850 / 3850
Balance 780 / 780 3850 / 3850
[2023-11-05 08:46] LABS: Blood Urea Nitrogen 37 mg/dl (9-20); Calcium 8.8 mg/dl (8.4-10.2); Carbon Dioxide 28 mmol/L (22-30); Chloride 105 mmol/L (98-107); Estimated Creatinine Clearance 63 ml/min; Glucose 132 mg/dl (70-99); Potassium 4.9 mmol/L (3.5-5.1); Sodium 137 mmol/L (135-145); eGFR 51.99
--- NOTE | 2023-11-05 08:48 | VATNOTE ---
R arm cord imrpoved. Area now measuring 1cm x 1cm. Pt stated that area is only slightly tender now. Will continue to monitor.
--- NOTE | 2023-11-05 11:25 | CM ---
Per Wendy Baker [id number] no auth is required for this transfer, they are just requesting signed Buy Back be faxed back to them that we are in the process of getting signed. Update to CM.
[2023-11-05 11:57] LABS: Glucose - Point of Care 178 mg/dl (70-99)
[2023-11-05] MEDS: NOVOLOG FLEXPEN-HIGH RESISTANCE 2 UNITS SC (13:06)
--- NOTE | 2023-11-05 13:49 | CM ---
Patient seen bedside, buy back letter signed, faxed to Wendy Baker at [facility] [phone]. CM will place copy in patients chart.
Plan; transfer to [place] when bed available.
--- NOTE | 2023-11-05 14:16 | W.PN.ID1 ---
Date of Service
Date of Service: November 05, 2023
Today's Communication
Await transfer. Continue antibiotics.
Assessment / Plan
Suprapubic abscess
Septic arthritis of symphysis pubis
Osteomyelitis of the symphysis pubis
Leukocytosis
Elevated ESR / CRP
Renal insufficiency
Hx HTN
DM type II
Recommendations:
Prior cultures were reviewed and revealed growth of Staph. lugdunensis and Citrobacter koseri
Current cultures without growth. (May be secondary to recent levofloxacin use)
Continue cefazolin 2 g IV every 8 hours.
Patient for transfer to [facility] for potential surgical exploration of the area.
����������������������������������������������������������
Chief Complaint
-: Other (Suprapubic abscess; symphysis pubis osteomyelitis)
Subjective / Review of Systems
Review of Systems: No Fever and No Chills
Vital Signs / Physical Exam
Vital Signs
Vital Signs
Temp Pulse Resp BP Pulse Ox
98.1 F 79 20 163/88 99
11/05/23 07:00 11/05/23 07:00 11/05/23 07:00 11/05/23 07:00 11/05/23 07:00
Physical Exam
Constitutional: No Acute Distress, Comfortable and Non-toxic
Eyes: Sclera Anicteric
Pulmonary: Non Labored; Negative Wheezes
Gastrointestinal: Non Distended
Skin: Warm and Dry; Negative Rash or Jaundice
Neurological: Awake and Alert
Psychological: Calm
Objective Data
Lab Data
Lab Results
11/05/23 07:14
11/05/23 07:12
ESR Cancelled 11/02/23 10:02
Estimated Creat Clear 63 ml/min 11/05/23 07:12
Lactic Acid 0.7 mmol/L (0.7-2.0) 10/29/23 13:53
Total Bilirubin 0.6 mg/dl (0.2-1.3) 10/29/23 10:53
AST 24 U/L (17-59) 10/29/23 10:53
ALT 25 U/L (0-50) 10/29/23 10:53
Alkaline Phosphatase 96 U/L (38-126) 10/29/23 10:53
C-Reactive Protein 54.00 mg/L (0.0-10.00) H 11/02/23 08:03
Most recent labs reviewed.
Micro Results:
10/29/23 14:15 Blood Culture - Final
Blood/Venous No Growth - Final Report
10/29/23 13:53 Blood Culture - Final
Blood/Venous No Growth - Final Report
10/29/23 13:54 Wound Culture - Final
Groin - Left No growth
Gram Stain - Final
Imaging:
11/01/2023 MRI pelvis W & W/O contrast: Complex collection in the left prepubic soft tissue measuring 2.6 x 1.5 x 4.7 cm. Low signal intensity foci within this collection may represent gas or packing material. An enhancing tract continuous with the
collection appears to communicate with the symphysis pubis. The parasymphyseal pubic bodies show a large amount of symmetric bilateral bone marrow edema and enhancement compatible with osteomyelitis and septic arthritis. Adjacent soft tissue edema
in the bilateral adductor musculature and lower anterior abdominal wall musculature. An additional rim-enhancing complex collection/abscess inferior to the symphysis pubis measures 2.5 x 1.6 x 1.7 cm.
10/29/2023 CT abdomen/pelvis with contrast: Findings are concerning for an abscess in the left perineum and anterior inferior pelvic wall. Fluid collection with several tiny pockets of air and mild rim enhancement. Measurements are 3 x 2 x 6 cm.
Please see full dictation for additional detail.
[2023-11-05 15:00] VITALS: BP 153/77
[2023-11-05 17:07] LABS: Glucose - Point of Care 130 mg/dl (70-99)
[2023-11-05 21:34] LABS: Glucose - Point of Care 49 mg/dl (70-99)
[2023-11-05] MEDS: DEXTROSE 50% SYRINGE 12.5 GRAMS IV (21:40)
[2023-11-05] MEDS: LANTUS SC (21:45)
[2023-11-05 21:56] LABS: Glucose - Point of Care 128 mg/dl (70-99)
[2023-11-05] MEDS: SENOKOT 17.1999999999999993 MG PO (21:59)
[2023-11-05] MEDS: LIPITOR 20 MG PO (21:59)
[2023-11-05 23:26] VITALS: BP 146/68
--- NOTE | 2023-11-05 23:28 | PTCARENOTE ---
QAt 2130, patient`s blood sugar was 49. Patient given orange juice and IV dextrose. EUGENIO Chaudhry notified. Glucose redrawn 15 minutes later and was 128. Will follow hypoglycemic protocol.
[2023-11-06 00:10] LABS: Glucose - Point of Care 143 mg/dl (70-99)
[2023-11-06] MEDS: NSS 1000 IV (01:37)
[2023-11-06] MEDS: HEPARIN 5000 UNITS SC ×4 (01:38→23:13)
[2023-11-06] MEDS: ANCEF 10 IV ×3 (01:38→17:11)
[2023-11-06 05:46] LABS: Glucose - Point of Care 140 mg/dl (70-99)
[2023-11-06] MEDS: ROXICODONE 5 MG PO ×2 (05:52→23:13)
[2023-11-06 07:00] VITALS: BP 153/81; BP 171/88
[2023-11-06 07:38] LABS: Glucose - Point of Care 216 mg/dl (70-99)
[2023-11-06] MEDS: NOVOLOG FLEXPEN-HIGH RESISTANCE 4 UNITS SC ×2 (07:55→11:47)
[2023-11-06] MEDS: NOVOLOG FLEXPEN 20 UNITS SC ×3 (07:55→17:10)
[2023-11-06] MEDS: ASPIR LOW (ENTERIC COATED) 81 MG PO (07:57)
[2023-11-06] MEDS: APRESOLINE 50 MG PO ×3 (07:57→21:30)
[2023-11-06] MEDS: COLACE 100 MG PO (07:58)
[2023-11-06] MEDS: COREG 6.25 MG PO (07:58)
[2023-11-06] MEDS: PROTONIX 40 MG PO (07:59)
[2023-11-06 08:00] LABS: % Basophils 0.8 % (0-2); % Eosinophils 2.3 % (0-6); % Immature Granulocytes 0.4 % (0-0.5); % Lymphocytes 14.9 % (20.5-51.1); % Monocytes 7.9 % (1.7-9.3); % Neutrophils 73.7 % (42.2-75.2); Absolute Basophils 0.1 10^3/uL (0-0.2); Absolute Eosinophils 0.3 10^3/uL (0-0.7); Absolute Immature Granulocytes 0.1 10^3/uL (0-0.05); Absolute Lymphocytes 1.7 10^3/uL (1.2-3.4); Absolute Monocytes 0.9 10^3/uL (0.1-0.6); Absolute Neutrophils 8.4 10^3/uL (1.4-6.5); Hematocrit 34.5 % (39.0-52.0); Hemoglobin 11.2 g/dL (13.0-18.0); Mean Corp Hgb Conc. 32.5 g/dL (33.0-37.0); Mean Corpuscular Hgb 30.7 pg (27.0-31.0); Mean Corpuscular Volume 94.5 fL (80.0-94.0); Mean Platelet Volume 9.7 fL (7.4-10.4); Nucleated Red Blood Cells % 0 % (-); Platelet Count 383 10^3/uL (130-400); Red Blood Cell Count 3.65 10^6/uL (4.70-6.10); Red Cell Dist. Width 12.6 % (11.5-14.5); White Blood Cell Count 11.4 10^3/uL (4.8-10.8)
[2023-11-06 08:56] LABS: Blood Urea Nitrogen 32 mg/dl (9-20); Carbon Dioxide 29 mmol/L (22-30); Chloride 102 mmol/L (98-107); Estimated Creatinine Clearance 67 ml/min; Glucose 168 mg/dl (70-99); Potassium 4.4 mmol/L (3.5-5.1); Sodium 137 mmol/L (135-145); eGFR 56.48
--- NOTE | 2023-11-06 08:57 | W.PN.HOSP.TC ---
Today's Communication/Plan
-
Cont antibiotics. Awaiting transfer to [place]
Assessment / Plan
Assessment / Plan
Gen: NAD, AAOx3.
Eyes: EOMI, PERRLA, no scleral icterus.
Neck: supple.
CV: remains RRR, +S1/S2, no m/r/g.
Resp: remains CTAB, no rales, wheezes, or rhonchi.
Abd: +BS, soft, NT, ND
Skin: No rashes. note, deferred.
Neuro: remains CN 2-12 intact, non-focal.
Psych: Continues to normal mood and affect.
10/29/23 14:15 Blood/Venous Blood Culture - Final
No Growth - Final Report
10/29/23 13:53 Blood/Venous Blood Culture - Final
No Growth - Final Report
10/29/23 13:54 Groin - Left Wound Culture - Final
No growth
10/29/23 13:54 Groin - Left Gram Stain - Final
CT A/P: Findings concerning for abscess in the left perineum as described above. Associated surrounding inflammatory change. Mild fecal material throughout the colon. Mild bladder wall thickening probably is partially due to limited distention.
Cystitis and bladder outlet obstruction not excluded.
MRI pelvis: Left prepubic soft tissue abscess with an enhancing tract that communicates with the symphysis pubis, where there is severe septic arthritis-osteomyelitis. Small soft tissue abscess inferior to the symphysis pubis. Inflammatory/reactive
or infectious myositis of the bilateral adductor musculature and lower anterior abdominal wall.
A/P:
Left prepubic soft tissue abscess, septic arthritis-osteomyelitis of the symphysis pubis:
-quoted from Dr. Yost's note 10/29/23, 'Draining sinus opened at bedside to approx 1cm and explored, revealing approx 8cm deep pocket in region of prior drain placement. Some remaining purulent fluid expressed. Wound packed with iodine gauze.'
-As per urology, further surgical debridement under anesthesia not needed
-previous�cultures grew�Staph. lugdunensis�and�Citrobacter koseri, current culture data NEG as above
-was on Meropenem/Vanco, now on Ancef
-ID/Uro on consult
-Patient has been accepted at [facility] on the orthopedic service for I&D of pubic symphysis septic arthritis with likely inferior abscess. Signed buyback letter on 11/05. Signed all transfer paper work on 11/05. Called [place] transfer line today on 11/06
and they do not have a bed available yet.
VICK:
-Likely due to prerenal azotemia
-Cr has improved to 1.4 with IVFs, stop for now and monitor
DM2:
-cont Lantus/premeal Novolog
-SSI/accuchecks
Other problems:
Iron deficiency anemia
Essential hypertension: Continue BB/hydralazine.
Hyperlipidemia: continue statin
BPH
Constipation
GERD: cont PPI
FULL/Heparin
Anticipated Discharge: 24 - 48 hours
Subjective/Interval History
-
Date of Service: November 06, 2023
No abd pain, n/v. Discomfort in pubis and scrotal area. Able to ambulate more.
Objective Data
-
Labs:
Laboratory Results
11/06/23
06:34
WBC 11.4 H
Hgb 11.2 L
Hct 34.5 L
Plt Count 383 D
Sodium 137
Potassium 4.4
Chloride 102
Carbon Dioxide 29
BUN 32 H
Creatinine 1.4 H
Glucose 168 H
Calcium 9.0
Vital Signs:
Vital Signs
Temp Pulse Resp BP Pulse Ox
97.6 F 68 18 146/68 100
11/05/23 23:26 11/05/23 23:26 11/05/23 23:26 11/05/23 23:26 11/05/23 23:26
I&O
11/05/23 11/06/23 11/07/23
06:59 06:59 06:59
Intake Total 3850 / 3850 2300 / 2300
Balance 3850 / 3850 2300 / 2300
Review of Systems
-
All other systems: Reviewed and negative
[2023-11-06 11:39] LABS: Glucose - Point of Care 230 mg/dl (70-99)
[2023-11-06 15:00] VITALS: BP 129/68
--- NOTE | 2023-11-06 15:21 | CM ---
Continue to wait for bed availability at [facility].
Plan: transfer to [facility] when bed available.
Buy back form faxed 11/05/23, copy on chart.
--- NOTE | 2023-11-06 16:50 | W.PN.ID1 ---
Date of Service
Date of Service: November 06, 2023
Today's Communication
Continue abx.
Assessment / Plan
Suprapubic abscess
Septic arthritis of symphysis pubis
Osteomyelitis of the symphysis pubis
Leukocytosis
Elevated ESR / CRP
Renal insufficiency
Hx HTN
DM type II
Recommendations:
Prior cultures were reviewed and revealed growth of Staph. lugdunensis and Citrobacter koseri
Current cultures without growth. (May be secondary to recent levofloxacin use)
Continue cefazolin 2 g IV every 8 hours.
Patient awaiting transfer to [facility] for potential surgical exploration of the area.
����������������������������������������������������������
Chief Complaint
-: Other (Suprapubic abscess; symphysis pubis osteomyelitis)
Subjective / Review of Systems
Review of Systems: No Fever and No Chills
Vital Signs / Physical Exam
Vital Signs
Vital Signs
Temp Pulse Resp BP Pulse Ox
98.3 F 72 18 129/68 98
11/06/23 15:00 11/06/23 15:00 11/06/23 15:00 11/06/23 15:00 11/06/23 15:00
Physical Exam
Constitutional: No Acute Distress, Comfortable and Non-toxic
Eyes: Sclera Anicteric
Pulmonary: Non Labored
Gastrointestinal: Non Distended
Wound: Other (Suprapubic wound dressed. Small amount of purulent drainage noted.)
Objective Data
Lab Data
Lab Results
11/06/23 06:34
11/06/23 06:34
ESR Cancelled 11/02/23 10:02
Estimated Creat Clear 67 ml/min 11/06/23 06:34
Lactic Acid 0.7 mmol/L (0.7-2.0) 10/29/23 13:53
Total Bilirubin 0.6 mg/dl (0.2-1.3) 10/29/23 10:53
AST 24 U/L (17-59) 10/29/23 10:53
ALT 25 U/L (0-50) 10/29/23 10:53
Alkaline Phosphatase 96 U/L (38-126) 10/29/23 10:53
C-Reactive Protein 54.00 mg/L (0.0-10.00) H 11/02/23 08:03
Most recent labs reviewed.
Micro Results:
10/29/23 14:15 Blood Culture - Final
Blood/Venous No Growth - Final Report
10/29/23 13:53 Blood Culture - Final
Blood/Venous No Growth - Final Report
10/29/23 13:54 Wound Culture - Final
Groin - Left No growth
Gram Stain - Final
Imaging:
11/01/2023 MRI pelvis W & W/O contrast: Complex collection in the left prepubic soft tissue measuring 2.6 x 1.5 x 4.7 cm. Low signal intensity foci within this collection may represent gas or packing material. An enhancing tract continuous with the
collection appears to communicate with the symphysis pubis. The parasymphyseal pubic bodies show a large amount of symmetric bilateral bone marrow edema and enhancement compatible with osteomyelitis and septic arthritis. Adjacent soft tissue edema
in the bilateral adductor musculature and lower anterior abdominal wall musculature. An additional rim-enhancing complex collection/abscess inferior to the symphysis pubis measures 2.5 x 1.6 x 1.7 cm.
10/29/2023 CT abdomen/pelvis with contrast: Findings are concerning for an abscess in the left perineum and anterior inferior pelvic wall. Fluid collection with several tiny pockets of air and mild rim enhancement. Measurements are 3 x 2 x 6 cm.
Please see full dictation for additional detail.
[2023-11-06 16:55] LABS: Glucose - Point of Care 137 mg/dl (70-99)
[2023-11-06] MEDS: NOVOLOG FLEXPEN-HIGH RESISTANCE 1 UNITS SC (17:10)
[2023-11-06 21:11] LABS: Glucose - Point of Care 138 mg/dl (70-99)
[2023-11-06 21:27] VITALS: BP 158/79
[2023-11-06] MEDS: LANTUS 0.369999999999999996 UNITS SC (21:29)
[2023-11-06] MEDS: SENOKOT 17.1999999999999993 MG PO (21:30)
[2023-11-06] MEDS: LIPITOR 20 MG PO (21:30)
[2023-11-06 23:01] VITALS: BP 151/78
[2023-11-07] MEDS: ANCEF 10 IV ×3 (00:53→16:57)
[2023-11-07 07:00] VITALS: BP 154/74
[2023-11-07 07:32] LABS: % Basophils 0.5 % (0-2); % Eosinophils 2.4 % (0-6); % Immature Granulocytes 0.5 % (0-0.5); % Lymphocytes 11.8 % (20.5-51.1); % Monocytes 6.9 % (1.7-9.3); % Neutrophils 77.9 % (42.2-75.2); Absolute Basophils 0.1 10^3/uL (0-0.2); Absolute Eosinophils 0.3 10^3/uL (0-0.7); Absolute Immature Granulocytes 0.1 10^3/uL (0-0.05); Absolute Lymphocytes 1.5 10^3/uL (1.2-3.4); Absolute Monocytes 0.9 10^3/uL (0.1-0.6); Absolute Neutrophils 9.9 10^3/uL (1.4-6.5); Hematocrit 29.9 % (39.0-52.0); Hemoglobin 10.1 g/dL (13.0-18.0); Mean Corp Hgb Conc. 33.8 g/dL (33.0-37.0); Mean Corpuscular Hgb 31.1 pg (27.0-31.0); Mean Platelet Volume 9.7 fL (7.4-10.4); Nucleated Red Blood Cells % 0 % (-); Platelet Count 309 10^3/uL (130-400); Red Blood Cell Count 3.25 10^6/uL (4.70-6.10); Red Cell Dist. Width 12.6 % (11.5-14.5); White Blood Cell Count 12.7 10^3/uL (4.8-10.8)
--- NOTE | 2023-11-07 07:41 | W.PN.HOSP.TC ---
Today's Communication/Plan
-
Continue current management. Awaiting for transfer to [facility]
Assessment / Plan
Assessment / Plan
Gen: NAD, AAOx3.
Eyes: EOMI, PERRLA, no scleral icterus.
Neck: supple.
CV: remains RRR, +S1/S2, no m/r/g.
Resp: remains CTAB, no rales, wheezes, or rhonchi.
Abd: +BS, soft, NT, ND
Skin: No rashes. note, deferred.
Neuro: remains CN 2-12 intact, non-focal.
Psych: Continues to normal mood and affect.
10/29/23 14:15 Blood/Venous Blood Culture - Final
No Growth - Final Report
10/29/23 13:53 Blood/Venous Blood Culture - Final
No Growth - Final Report
10/29/23 13:54 Groin - Left Wound Culture - Final
No growth
10/29/23 13:54 Groin - Left Gram Stain - Final
CT A/P: Findings concerning for abscess in the left perineum as described above. Associated surrounding inflammatory change. Mild fecal material throughout the colon. Mild bladder wall thickening probably is partially due to limited distention.
Cystitis and bladder outlet obstruction not excluded.
MRI pelvis: Left prepubic soft tissue abscess with an enhancing tract that communicates with the symphysis pubis, where there is severe septic arthritis-osteomyelitis. Small soft tissue abscess inferior to the symphysis pubis. Inflammatory/reactive
or infectious myositis of the bilateral adductor musculature and lower anterior abdominal wall.
A/P:
Left prepubic soft tissue abscess, septic arthritis-osteomyelitis of the symphysis pubis:
-quoted from Dr. Yost's note 10/29/23, 'Draining sinus opened at bedside to approx 1cm and explored, revealing approx 8cm deep pocket in region of prior drain placement. Some remaining purulent fluid expressed. Wound packed with iodine gauze.'
-As per urology, further surgical debridement under anesthesia not needed
-previous�cultures grew�Staph. lugdunensis�and�Citrobacter koseri, current culture data NEG as above
-was on Meropenem/Vanco, now on Ancef
-ID/Uro on consult
-Patient has been accepted at [facility] on the orthopedic service for I&D of pubic symphysis septic arthritis with likely inferior abscess. Signed buyback letter on 11/05. Signed all transfer paper work on 11/05. Called [facility] transfer line on 11/06 and they
do not have a bed available yet.
VICK:
-Likely due to prerenal azotemia
-Cr has improved to 1.4 with IVFs, off IV fluids for now and monitor
DM2:
-cont Lantus/premeal Novolog
-SSI/accuchecks
Other problems:
Iron deficiency anemia
Essential hypertension: Continue BB/hydralazine.
Hyperlipidemia: continue statin
BPH
Constipation
GERD: cont PPI
FULL/Heparin
Anticipated Discharge: 24 - 48 hours
Subjective/Interval History
-
Date of Service: November 07, 2023
Patient complains of mild discomfort scrotal and sacral decubitus area. No nausea vomiting or chest pain or shortness of breath.
Objective Data
-
Labs:
Laboratory Results
11/07/23
06:33
WBC 12.7 H
Hgb 10.1 L
Hct 29.9 L
Plt Count 309
Sodium Pending
Potassium Pending
Chloride Pending
Carbon Dioxide Pending
BUN Pending
Creatinine Pending
Glucose Pending
Calcium Pending
Vital Signs:
Vital Signs
Temp Pulse Resp BP Pulse Ox
97.8 F 77 20 151/78 98
11/06/23 23:01 11/06/23 23:01 11/06/23 23:01 11/06/23 23:01 11/06/23 23:01
I&O
11/06/23 11/07/23 11/08/23
06:59 06:59 06:59
Intake Total 2300 / 2300 1260 / 1260
Balance 2300 / 2300 1260 / 1260
Review of Systems
-
All other systems: Reviewed and negative
[2023-11-07 08:24] LABS: Glucose - Point of Care 193 mg/dl (70-99)
[2023-11-07] MEDS: ASPIR LOW (ENTERIC COATED) 81 MG PO (08:31)
[2023-11-07] MEDS: APRESOLINE 50 MG PO ×2 (08:31→16:27)
[2023-11-07] MEDS: PROTONIX 40 MG PO (08:31)
[2023-11-07] MEDS: COREG 6.25 MG PO (08:31)
[2023-11-07] MEDS: COLACE 100 MG PO (08:31)
[2023-11-07] MEDS: HEPARIN 5000 UNITS SC ×2 (08:32→16:28)
[2023-11-07] MEDS: NOVOLOG FLEXPEN 20 UNITS SC ×3 (08:33→16:27)
[2023-11-07] MEDS: NOVOLOG FLEXPEN-HIGH RESISTANCE 2 UNITS SC ×3 (08:33→16:26)
[2023-11-07 08:46] LABS: Blood Urea Nitrogen 39 mg/dl (9-20); Calcium 8.9 mg/dl (8.4-10.2); Carbon Dioxide 28 mmol/L (22-30); Chloride 100 mmol/L (98-107); Estimated Creatinine Clearance 67 ml/min; Glucose 159 mg/dl (70-99); Potassium 4.6 mmol/L (3.5-5.1); Sodium 136 mmol/L (135-145); eGFR 56.48
--- NOTE | 2023-11-07 09:16 | W.PN.URO.CBU ---
Today's Communication / Plan
-
Stable urologically
Wound packing changed
Assessment / Plan
-
Spontaneous drainage (sterile) from previous pre-pubic abscess site
Gram stain negative
Blood cultures negative
---
VICK improved
Leukocytosis improved
MRI raises concern for osteomyelitis: suspect might be source of origin
Discussed with Hospitalist
Would advise orthopedic consultation
Diagnosis
-
Date of Service: November 07, 2023
-
Patient Diagnosis:
Pre-pubic abscess (recurrent v. residual) with spontaneous bloody drainage 10/29/22. Gram stain negative. Citrobacter koseri originally cultured at time of surgical exploration 07/30/23
s/p bedside I&D with placement of wound wick 10/29/22
---
VICK: improved
All cultures negative
MRI suggests osteomyelitis of the pubic bone: likely the original source of the abscess given original CT scan images
Subjective
-
Comfortable
c/o right groin swelling
Objective
-
Vital Signs
Temp Pulse Resp BP Pulse Ox
97.8 F 77 20 151/78 98
11/06/23 23:01 11/06/23 23:01 11/06/23 23:01 11/06/23 23:01 11/06/23 23:01
Intake and Output
11/06/23 11/07/23 11/08/23
06:59 06:59 06:59
Intake Total 2300 / 2300 1260 / 1260
Balance 2300 / 2300 1260 / 1260
Intake:
Oral fluids 1200 / 1200 1260 / 1260
IV fluids (Total) 1100 / 1100
Other:
Number of approximated MODERATE 2 1
amounts of urine
Laboratory Results
11/07/23 06:33
11/07/23 06:33
Review of Systems
-
Constitutional: No Symptoms
Respiratory: No Symptoms
Abdomen/GI: Abdominal Pain
: No Symptoms
Neurological: No Symptoms
Physical Exam
-
General - well nourished, no acute distress
Abdomen - soft, no CVAT, no incisional pain, wick packing changed: mucopurulent drainage persists
Genitalia - normal
Skin - warm & dry with no rash
Neuro - AOx3, no motor deficits
Counseling
-
Continue once daily wound packing change
--- NOTE | 2023-11-07 10:04 | VATNOTE ---
Patient's right arm cord has resolved.
[2023-11-07 12:30] LABS: Glucose - Point of Care 192 mg/dl (70-99)
--- NOTE | 2023-11-07 12:37 | CM ---
Call placed to emi Kelly coor at [facility], she confirmed they received the Buyback that we had sent earlier this week and are just waiting a bed to open up. Once bed available they will call floor to make them aware.
--- NOTE | 2023-11-07 14:42 | W.PN.ID1 ---
Date of Service
Date of Service: November 07, 2023
Today's Communication
Continue antibiotics
Assessment / Plan
Suprapubic abscess
Septic arthritis of symphysis pubis
Osteomyelitis of the symphysis pubis
Leukocytosis
Elevated ESR / CRP
Renal insufficiency
Hx HTN
DM type II
Recommendations:
Prior cultures with Staph. lugdunensis and Citrobacter koseri.
Current cultures without growth. (May be secondary to recent levofloxacin use)
Continue cefazolin 2 g IV every 8 hours.
Patient awaiting transfer to [facility] for potential surgical exploration of the area. Would recommend deep cultures and bone biopsy performed at that time.
����������������������������������������������������������
Chief Complaint
-: Other (Suprapubic abscess; symphysis pubis osteomyelitis)
Subjective / Review of Systems
Review of Systems: No Fever and No Chills
Vital Signs / Physical Exam
Vital Signs
Vital Signs
Temp Pulse Resp BP Pulse Ox
97.9 F 75 18 154/74 98
11/07/23 07:00 11/07/23 07:00 11/07/23 07:00 11/07/23 07:00 11/07/23 08:25
Physical Exam
Constitutional: No Acute Distress, Comfortable and Non-toxic
Eyes: No Conjunctival Hemorrhage and Sclera Anicteric
Pulmonary: Non Labored
Gastrointestinal: Non Distended
Wound: Other (Suprapubic wound with packing in place.)
Objective Data
Lab Data
Lab Results
11/07/23 06:33
11/07/23 06:33
ESR Cancelled 11/02/23 10:02
Estimated Creat Clear 67 ml/min 11/07/23 06:33
Lactic Acid 0.7 mmol/L (0.7-2.0) 01/22/24 13:53
Total Bilirubin 0.6 mg/dl (0.2-1.3) 10/29/23 10:53
AST 24 U/L (17-59) 10/29/23 10:53
ALT 25 U/L (0-50) 10/29/23 10:53
Alkaline Phosphatase 96 U/L (38-126) 10/29/23 10:53
C-Reactive Protein 54.00 mg/L (0.0-10.00) H 11/02/23 08:03
Most recent labs reviewed.
Micro Results:
10/29/23 14:15 Blood Culture - Final
Blood/Venous No Growth - Final Report
10/29/23 13:53 Blood Culture - Final
Blood/Venous No Growth - Final Report
10/29/23 13:54 Wound Culture - Final
Groin - Left No growth
Gram Stain - Final
Imaging:
11/01/2023 MRI pelvis W & W/O contrast: Complex collection in the left prepubic soft tissue measuring 2.6 x 1.5 x 4.7 cm. Low signal intensity foci within this collection may represent gas or packing material. An enhancing tract continuous with the
collection appears to communicate with the symphysis pubis. The parasymphyseal pubic bodies show a large amount of symmetric bilateral bone marrow edema and enhancement compatible with osteomyelitis and septic arthritis. Adjacent soft tissue edema
in the bilateral adductor musculature and lower anterior abdominal wall musculature. An additional rim-enhancing complex collection/abscess inferior to the symphysis pubis measures 2.5 x 1.6 x 1.7 cm.
10/29/2023 CT abdomen/pelvis with contrast: Findings are concerning for an abscess in the left perineum and anterior inferior pelvic wall. Fluid collection with several tiny pockets of air and mild rim enhancement. Measurements are 3 x 2 x 6 cm.
Please see full dictation for additional detail.
--- NOTE | 2023-11-07 15:06 | CM ---
Received word bed open at [facility] and pt is to be transferred today via ambulance at 5:30pm.
All needed paper work on chart.As per Caridad Liu director.[facility] received buy back.
Spoke with patient aware on transfer . RN informed him.
Plan: Transfer to [facility] today.
[2023-11-07 16:25] LABS: Glucose - Point of Care 173 mg/dl (70-99)
--- NOTE | 2023-11-07 17:54 | W.DCSUMMARY ---
Discharge Summary
Discharge Data
Date of Admission: 10/29/23
Date of Discharge: 11/07/23
-
Pending Results: No
Hospital Course
Patient 63 years old with history hypertension, diabetes mellitus, presented to the hospital with spontaneous drainage on his undergarments and found to have suprapubic abscess, septic arthritis and osteomyelitis of the symphysis pubis. He had a
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
until a week and a half prior to his presentation he started to develop swelling in the suprapubic region and the base of the penis and urology started him on oral Levaquin as outpatient but he continues to have symptoms and decided to come here to
the hospital. Upon admission ID and urology were consulted and he was placed on broad-spectrum IV antibiotics. CT scan showed collection with some gas concerning for abscess tracking along anterior aspect of the corporal bodies. MRI was done and
confirmed left prepubic soft tissue abscess and enhancing tract communicating with the sepsis previous, severe septic arthritis osteomyelitis, small soft tissue abscess inferior to the symphysis pubis, inflammatory myositis of the bilateral abductor
musculature and lower anterior abdominal wall. After discussion with orthopedic they recommended transfer to tertiary care center. [facility] was contacted and he was accepted for transfer. Patient was continue on IV antibiotics with IV cefazolin.
He is being transferred today.
Discharge duration: 37 minutes
Discharge Plan
-
Patient Disposition: Acute Care Hospital
Condition: Fair
Discharge Orders:
Discharge Patient (As Directed); Ordered 11/05/23
Ordered By: Adam Umanzor
Discharge Date and Time
Discharge Date/Time: 11/07/23 18:38
== END 2023-11-07 18:38 | disposition short-term general hospital (02) | DRG 549 ==
LOC: 4 WEST ACU 15:00
PROVIDERS: Physician Assistant; Registered Nurse; ADMITTING PHYSICIAN Internal Medicine; ATTENDING PHYSICIAN Hospitalist; CONSULT PHYSICIAN Internal Medicine Infectious Disease; CONSULT PHYSICIAN Urology; EMERGENCY PHYSICIAN Emergency Medicine; FAMILY PHYSICIAN Physician Assistant Medical
DX: M00.9 Pyogenic arthritis, unspecified (principal); E11.52 Type 2 diabetes mellitus with diabetic peripheral angiopathy with gangrene; L02.211 Cutaneous abscess of abdominal wall; L02.215 Cutaneous abscess of perineum; M86.9 Osteomyelitis, unspecified; N17.9 Acute kidney failure, unspecified; E11.69 Type 2 diabetes mellitus with other specified complication; E11.22 Type 2 diabetes mellitus with diabetic chronic kidney disease; E78.5 Hyperlipidemia, unspecified; I12.9 Hypertensive chronic kidney disease with stage 1 through stage 4 chronic kidney disease, or unspecified chronic kidney disease; N18.32 Chronic kidney disease, stage 3b; D50.9 Iron deficiency anemia, unspecified; N40.0 Benign prostatic hyperplasia without lower urinary tract symptoms; K59.00 Constipation, unspecified; K21.9 Gastro-esophageal reflux disease without esophagitis; D72.829 Elevated white blood cell count, unspecified; R26.2 Difficulty in walking, not elsewhere classified; M60.9 Myositis, unspecified; Z79.4 Long term (current) use of insulin; Z85.828 Personal history of other malignant neoplasm of skin; Z87.891 Personal history of nicotine dependence; Z88.8 Allergy status to other drugs, medicaments and biological substances; Z79.82 Long term (current) use of aspirin
CPT/HCPCS: 72197; 74177; 80048; 80053; 80202; 82962; 83036; 83605; 85025; 85027; 85652; 86140; 86803; 87040; 87070; 87205; 96361; 96374; 99285; A9575; Q9967

== ENCOUNTER → 2024-01-14 18:00 | Outpatient (REF) | payer OTHER, SELFPAY ==
--- NOTE | 2023-12-26 11:03 | PN.DIAED02 ---
Referral
DSME Class Series Code: [id number]
Referred For: Diabetes Self-Management Training, Medical Nutrition Therapy, Self-Blood Glucose Monitoring, Long-Term Complication Instruction, Accute Complication Instruction, Medication management, Insulin Instruction, Care Coordination, Disease
Management
PHI Release Authorization Form Signed: Yes
Patient Problems:
Current Active Problems
Problem Status Onset
Type 2 diabetes mellitus without complications ~12/07/99
Demographic
(1) Type 2 diabetes mellitus without complications
Status: Acute Code(s): E11.9 - Type 2 diabetes mellitus without complications
Patient's primary language-: Kittitian
Education: Some college
Occupation: Vocational/Trade
Hours Worked/Week: > 40
Shift: Day
- Social
Primary Support Person: Self
Primary Care Takers: Self
Living Arrangements: Self & spouse
- Learning Methods
Preferred Method: Hands-on demonstration
Barriers to Learning: None
Glycemic Control
- Blood Glucose Monitoring Assessment
Date: 12/26/23 (FBG )
Blood glucose monitoring at home: Yes
Monitor Brands: [employer] (JOSE 3)
Frequency: >4x per day
Time: fasting, before breakfast, before lunch, before dinner, bedtime
Patient uses Alternate Site Testing: No
Patient instructed on Use and Limitation: No
- Hypoglycemia Assessment
Patient carries glucose source: Yes (GLUCOSE TABLETS)
Patient experiences hypoglycemia: Yes
Frequency: 4-6x per week
Treatment: juice, glucose tabs
Time: before lunch
Patient has required treatment by others: No
History of Hypoglycemia Unawareness: No
- Blood Glucose Monitoring Results
Source: log book
- Hemoglobin A1c
Date: 10/30/23
A1C Percentage (%): 8
Medical History of Diabetes
Family Diabetes History: Mother, Sibling, Grandfather
Previous Diabetes Education: No
Previous visit with Dietitian: No
Complications/Comorbidity/Specialist: Gastrointestinal disease, Heart Disease, Hypertension, Hyperlipidemia, Kidney / bladder disease, Neuropathy
Current Home Medication
- Insulin Management
Patient adjusts own insulin dosages: No
Patient has access to glucagon: Yes
- Insulin Types
Novolog Lantus
Insulin Injection Site: Abdomen, Thigh
Administration Type: FlexPen
Needle Length: 316' (5 mm)
Needle Gauge: 30
Connection Type: Screw on
Measures
- Anthropometrics
Height: 6 ft
Actual Weight: 250 kg
- Blood Pressure / Pulse
Blood pressure: 180/98
Pulse: 77
- Diabetes Management
Medical Management for Diabetes: Complete physical exam (12/11/2023), Dental exam, Dilated eye exam (11/22/2023), Pneumonia vaccination (07/22/2023)
Self-Care
- Tobacco Usage
Do you now, or have you ever smoked?: Quit more than 1 year ago
- Alcohol & Drugs Usage
Drinks Alcohol: Yes
Amount/day: Social Occasions
Uses Recreational Drugs: No
- Meals & Dining
Meals & Dining: Patient skips meals: No, Food Intolerance / Allergy: No, Cultural / Advent Dietary Needs: No
Primary Food Global Position System Technician: Self & Spouse
Primary Business Solutions Director: Spouse
Dining Out Frequency: 1-3x per week
- Physical Activity
Physical Limitation: Yes
Patient participates in physical Activity: No
- Self Foot-Care
Foot Problems: None
Performs Self Foot-Exam: No
- Patient-Self Assessment
Diabetes Knowledge: Poor
Feelings About Diabetes: Anger
General Health: Fair
Importance of Health: Extremely
Stress Level: High
Diabetes Interferes With:: Sexual relations
Barriers to Diabetes Management: Nothing
Depression Survey Score: 6
- Diabetes Identification
Carries Diabetes Identification: Yes
Diabetes Identification Information Provided: No
Care Plan
- Education Needs
Patient Education Needs: Diabetes disease process, Chronic complications, Acute complications, Medication, Monitoring, Physical activity, Psychosocial Adjustment, Nutritional management, Goal setting & problem solving
Recommended Diabetes Training Program based on assessment: Outpatient Diabetes Education Program
- Plan of Care
Plan of Care:
Met with Levy and his -Noreen today for registration and initiation of Diabetes Self management. Pt was recommended by his PCP and infectious disease doctors due to uncontrolled diabetes, recent A1C is 8%, was as high as 13.2% in July 2023.
Patient states that he has been diabetic for over 20 years, he had been taking Jardiance, Trulicity and Glimepiride, all discontinued due to Rufino Gangrene and pubic symphysis Osteomyelitis.
Of note he was admitted at for pubic symphysis osteomyelitis and required transfer to the [facility], where he underwent exploration of the pubic symphysis area and bone debridement. He was discharged on a course of IV antibiotics
(cefazolin), to continue through 12/25/2023.
He routinely follows with infectious disease specialist and [facility]-kira Cunningham appt is scheduled for 01/25/24.
Pt is expressing feelings of frustration and anger towards being diabetic and not having enough resources or support from his Endocrine office about diabetes management at home. States he does not know what he's doing most of the time. He has been
consistently monitoring his blood sugars 4-5x/day, and presents to this apt with a glucose log that shows recurrent episode of Hypoglycemia. He was using a CGM but stopped using it due to alarm fatigue.
He was taking Lantus 37 units @ HS, dose has recently been decreased to 32 units and NovoLog 22 units with meals.
Pt was counseled with emphasis on the importance of recognizing Hypoglycemic episodes and appropriate treatment. He was instructed to take half the dose of 22 units if he is hypoglycemic with a blood sugar below 70 before a meal. He was given a
glucose log sheet and will monitor and log all low blood sugars and bring with him to his 1st day of class for GYMNASTICS COACH OR INSTRUCTOR to review and make necessary adjustment to his insulin dose.
--- NOTE | 2023-12-26 13:58 | PN.DIAED04 ---
Education Record
- Education Record
Class Attended: Other (Pre-Registration for DSME classes)
DSME Class Series Code: [id number]
Instructor: Nurse Practitioner
Class Length (mins): 60
Pre-Program Knowledge: Needs review / Assistance
Pre-Test Score (%): 63
Goals
- Goal 1
Being Active: Exercise 30 minutes-5 times per week
Goals To Be Evaluated: Exercise 30 mins-5x/week
- Goal 2
Healthy Eating: Make better food choices, Follow meal plan, Reduce portion sizes
Goals To Be Evaluated: Make better food choices. Follow meal plan. Reduce portion sizes
- Goal 3
Monitoring: Check blood sugar 4x daily-b4 breakfast/b4 lunch/b4 dinner/at bedtime, Record blood glucose levels in log book
Goals To Be Evaluated: Check blood sugar 4x/day. Record BG levels
--- NOTE | 2024-01-16 08:11 | PN.DIAED04 ---
Education Record
- Education Record
Class Attended: Class 1
[facility] Class Series Code: [id number]
Instructor: Nurse Practitioner
Class Length (mins): 120
Post-Class 1 Test Score (%): 94
--- NOTE | 2024-01-16 08:12 | PN.DIAED14 ---
This is to notify you that your patient with diabetes, STEWART LINDSEY ( 1960), has enrolled in our diabetes self-management classes that are being held at [facility].
These classes will include an introduction to diabetes, diet, medication, exercise and prevention of complications. At the end of our class series, you will receive a report of your patient's participation and progress for your records.
Please contact me at the Diabetes Center, , if there is any particular information regarding your patient that might be helpful to me.
Sincerely,
EUGENIO Hernandez-, [facility]
Diabetes & Nutrition Services Director
--- NOTE | 2024-01-17 14:11 | PN.DIAED06 ---
Meal Plans - Regular
- Meal Plan
Diabetic Meal Plan Name: 2600 calories
Breakfast - Total Carbohydrate (grams): 60
Breakfast - Starch Carbohydrate: 0
Breakfast - Fruit Carbohydrate: 0
Breakfast - Milk Carbohydrate: 0
Breakfast - Nonstarchy Vegetables: Yes
Breakfast - Meat/Protein: 1
Breakfast - Fat: 2
Morning Snack - Total Carbohydrate (grams): 30
Morning Snack - Starch Carbohydrate: 0
Morning Snack - Fruit Carbohydrate: 0
Morning Snack - Milk Carbohydrate: 0
Morning Snack - Nonstarchy Vegetables: Yes
Morning Snack - Meat/Protein: 1
Morning Snack - Fat: 0
Lunch - Total Carbohydrate (grams): 60
Lunch - Starch Carbohydrate: 0
Lunch - Fruit Carbohydrate: 0
Lunch - Milk Carbohydrate: 0
Lunch - Nonstarchy Vegetables: Yes
Lunch - Meat/Protein: 4
Lunch - Fat: 2
Afternoon Snack - Total Carbohydrate (grams): 30
Afternoon Snack - Starch Carbohydrate: 0
Afternoon Snack - Fruit Carbohydrate: 0
Afternoon Snack - Milk Carbohydrate: 0
Afternoon Snack - Nonstarchy Vegetables: Yes
Afternoon Snack - Meat/Protein: 0.5
Afternoon Snack - Fat: 0
Dinner - Total Carbohydrate (grams): 60
Dinner - Starch Carbohydrate: 0
Dinner - Fruit Carbohydrate: 0
Dinner - Milk Carbohydrate: 0
Dinner - Nonstarchy Vegetables: Yes
Dinner - Meat/Protein: 4
Dinner - Fat: 2
Evening Snack - Total Carbohydrate (grams): 30
Evening Snack - Starch Carbohydrate: 0
Evening Snack - Fruit Carbohydrate: 0
Evening Snack - Milk Carbohydrate: 0
Evening Snack - Nonstarchy Vegetables: Yes
Evening Snack - Meat/Protein: 0
Evening Snack - Fat: 0
--- NOTE | 2024-01-21 10:44 | PN.DIAED06 ---
Meal Plans - Regular
- Meal Plan
Diabetic Meal Plan Name: 2000 calories
Breakfast - Total Carbohydrate (grams): 45
Breakfast - Starch Carbohydrate: 0
Breakfast - Fruit Carbohydrate: 0
Breakfast - Milk Carbohydrate: 0
Breakfast - Nonstarchy Vegetables: Yes
Breakfast - Meat/Protein: 1
Breakfast - Fat: 2
Morning Snack - Total Carbohydrate (grams): 30
Morning Snack - Starch Carbohydrate: 0
Morning Snack - Fruit Carbohydrate: 0
Morning Snack - Milk Carbohydrate: 0
Morning Snack - Nonstarchy Vegetables: Yes
Morning Snack - Meat/Protein: 0.5
Morning Snack - Fat: 0
Lunch - Total Carbohydrate (grams): 45
Lunch - Starch Carbohydrate: 0
Lunch - Fruit Carbohydrate: 0
Lunch - Milk Carbohydrate: 0
Lunch - Nonstarchy Vegetables: Yes
Lunch - Meat/Protein: 3
Lunch - Fat: 1
Afternoon Snack - Total Carbohydrate (grams): 30
Afternoon Snack - Starch Carbohydrate: 0
Afternoon Snack - Fruit Carbohydrate: 0
Afternoon Snack - Milk Carbohydrate: 0
Afternoon Snack - Nonstarchy Vegetables: Yes
Afternoon Snack - Meat/Protein: 0.5
Afternoon Snack - Fat: 0
Dinner - Total Carbohydrate (grams): 45
Dinner - Starch Carbohydrate: 0
Dinner - Fruit Carbohydrate: 0
Dinner - Milk Carbohydrate: 0
Dinner - Nonstarchy Vegetables: Yes
Dinner - Meat/Protein: 4
Dinner - Fat: 2
Evening Snack - Total Carbohydrate (grams): 15
Evening Snack - Starch Carbohydrate: 0
Evening Snack - Fruit Carbohydrate: 0
Evening Snack - Milk Carbohydrate: 0
Evening Snack - Nonstarchy Vegetables: Yes
Evening Snack - Meat/Protein: 0
Evening Snack - Fat: 0
== END ==
LOC: DES 18:00
PROVIDERS: ATTENDING PHYSICIAN Physician Assistant; FAMILY PHYSICIAN Physician Assistant Medical
DX: E11.9 Type 2 diabetes mellitus without complications (principal)
CPT/HCPCS: 99078

== ENCOUNTER → 2024-01-21 18:00 | Outpatient (REF) | payer OTHER, SELFPAY ==
--- NOTE | 2024-01-23 08:24 | PN.DIAED04 ---
Education Record
- Education Record
Class Attended: Class 2
[facility] Class Series Code: [id number]
Instructor: Registered Dietitian (Whitney Madden, ISABELLN, LDN)
Class Length (mins): 120
== END ==
LOC: DES 18:00
PROVIDERS: ATTENDING PHYSICIAN Physician Assistant
DX: E11.9 Type 2 diabetes mellitus without complications (principal)
CPT/HCPCS: 99078

== ENCOUNTER → 2024-01-28 18:00 | Outpatient (REF) | payer OTHER, SELFPAY ==
--- NOTE | 2024-01-30 08:20 | PN.DIAED04 ---
Education Record
- Education Record
Class Attended: Class 3
DSME Class Series Code: [id number]
Instructor: Registered Dietitian (Chikis Gonzalez, RD, LDN, CDE)
Class Length (mins): 120
Post-Class 2 & 3 Test Score (%): 81
== END ==
LOC: DES 18:00
PROVIDERS: ATTENDING PHYSICIAN Physician Assistant
DX: E11.9 Type 2 diabetes mellitus without complications (principal)
CPT/HCPCS: 99078

== ENCOUNTER → 2024-01-30 14:35 | Outpatient (REF) | payer OTHER, SELFPAY ==
[2024-01-30 15:51] LABS: Blood Urea Nitrogen 63 mg/dl (9-20); Calcium 9.4 mg/dl (8.4-10.2); Carbon Dioxide 19 mmol/L (22-30); Chloride 107 mmol/L (98-107); Glucose 206 mg/dl (70-99); Potassium 5.7 mmol/L (3.5-5.1); Sodium 136 mmol/L (135-145); eGFR 34.72
== END ==
LOC: REG 14:35
PROVIDERS: ATTENDING PHYSICIAN Internal Medicine Infectious Disease; FAMILY PHYSICIAN Physician Assistant Medical
DX: M86.28 Subacute osteomyelitis, other site (principal)
CPT/HCPCS: 36415; 80048

== ENCOUNTER → 2024-02-04 18:00 | Outpatient (REF) | payer OTHER, SELFPAY ==
--- NOTE | 2024-02-06 12:38 | PN.DIAED04 ---
Education Record
- Education Record
Class Attended: Class 4
DSME Class Series Code: [id number]
Instructor: Registered Nurse (Ashanti Dover, RN, BSN, CDE)
Class Length (mins): 120
Post-Class 4 Test Score (%): 100
== END ==
LOC: DES 18:00
PROVIDERS: ATTENDING PHYSICIAN Physician Assistant
DX: E11.9 Type 2 diabetes mellitus without complications (principal)
CPT/HCPCS: 99078

== ENCOUNTER → 2024-02-11 18:00 | Outpatient (REF) | payer OTHER, SELFPAY ==
--- NOTE | 2024-02-13 14:11 | PN.DIAED16 ---
This is to notify you that your patient with diabetes, STEWART LINDSEY ( 1960), has attended the entire series of Diabetes Self-Management Education Classes.
Class 1 (120 minutes): Diabetes Overview - monitoring, stress/psychosocial adjustment, support, goal setting
Class 2 (120 minutes): Meal Planning - serving sizes, menu plans
Class 3 (120 minutes): Introduction to Carbohydrate Counting, Analyzing Food Labels
Class 4 (120 minutes): Medication, Exercise and Activity
Class 5 (120 minutes): Sick Day Management, Strategies to Reduce Complications, Problem Solving, Resources
The following behavioral goals were identified:
Exercise 30 mins-5x/week
Make better food choices
Follow meal plan
Reduce portion sizes
Check blood sugar 4x/day
Record BG levels
A follow-up call will be made within three to six months to evaluate attainment of these goals and to check post-program Hemoglobin A1c and overall progress. All class participants are encouraged to contact me if I can be any further assistance in
learning how to manage their diabetes.
Sincerely,
EUGENIO Hernandez-, [facility]
Diabetes & Nutrition Services Director
== END ==
LOC: DES 18:00
PROVIDERS: ATTENDING PHYSICIAN Physician Assistant
DX: E11.9 Type 2 diabetes mellitus without complications (principal)
CPT/HCPCS: 99078

== ENCOUNTER → 2024-04-28 07:17 | Outpatient (REF) | payer OTHER, SELFPAY | LOC: MRI 07:17 | PROVIDERS: ATTENDING PHYSICIAN Physician Assistant Medical | DX: M25.561 Pain in right knee (principal) | CPT/HCPCS: 73721 ==